=== PATIENT | male | born 1975 | race Caucasian/White ===

== ENCOUNTER → 2017-09-04 15:27 | Outpatient (CLI) | payer OTHER, SELFPAY ==
[2017-09-04 17:42] LABS: Absolute Lymphocyte Count 2.31 X10^3/ul (0.83-4.51); Absolute Neutrophil Count 5.2 X10^3/uL (2.0-7.7); Basophil# 0.03 X10^3/uL; Basophil% 0.3 % (0-1); Eosinophil# 0.25 X10^3/uL; Eosinophils% 2.9 % (0-5); Hematocrit 44.2 % (40-54); Hemoglobin 14.6 g/dl (13.0-16.5); Lymphocyte # 2.31 X10^3/ul (4.0); Lymphocyte % 26.9 % (19-41); Mean Corpuscular Hgb 31.7 pg (27.0-32.0); Mean Corpuscular Volume 96.1 fL (80-94); Mean Platelet Vol. 9.8 fl (6.2-12.0); Monocyte# 0.78 X10^3/uL; Monocyte% 9.1 % (0-10); Neutrophil % 60.6 % (47-70); Platelet Count 237 K/mm3 (150-450); RBC Distribution Width CV 13.3 % (11.6-14.6); White Blood Count 8.6 K/mm3 (4.4-11.0)
[2017-09-04 17:44] LABS: POSITIVE COUNT NO; POSITIVE DIFFERENTIAL NO; POSITIVE MORPHOLOGY NO
[2017-09-04 17:55] LABS: ALB/GLOB Ratio 1.2 RATIO (0.9-2.4); AST(SGOT) 32 U/L (15-37); Alanine Aminotransfer ALT/SGPT 74 U/L (16-61); Albumin, Serum 3.8 g/dL (3.2-5.0); Alkaline Phosphatase 56 U/L (45-117); Anion Gap 9 (5-15); BUN 15 mg/dL (7-18); BUN/Creat Ratio 24.2 RATIO (10-20); Calcium,Total 8.6 mg/dL (8.5-10.1); Chloride 100 mmol/L (98-107); Creatinine, Serum 0.62 mg/dL (0.70-1.30); EST Glomerular Filtration Rate 151 mL/min (>60); Est Glom Filt Rate - Afr Amer 182 mL/min (>60); Globulin 3.2 g/dL (2.2-4.2); Glucose 97 mg/dL (70-110); Potassium 3.7 mmol/L (3.5-5.1); Sodium Level 137 mmol/L (136-145)
[2017-09-04 17:58] LABS: Hemoglobin A1c 5.3 % (4.2-6.3)
[2017-09-08 09:09] LABS: Testosterone, Free 3.09 ng/dL (5.00-21.00)
[2017-09-10 08:01] LABS: Testosterone, % Free 2.94 % (1.50-4.20); Testosterone, Total 105 ng/dL (264-916)
== END ==
PROVIDERS: Family Provider Family Medicine; PCP Family Medicine; Visit Provider Family Medicine
DX: E11.9 Type 2 diabetes mellitus without complications (principal); K76.0 Fatty (change of) liver, not elsewhere classified; E29.1 Testicular hypofunction; Z51.81 Encounter for therapeutic drug level monitoring
CPT/HCPCS: 36415; 80053; 83036; 84402; 84403; 85025

== ENCOUNTER → 2017-09-07 16:10 | Outpatient (CLI) | payer OTHER, SELFPAY ==
[2017-09-07 17:32] LABS: Erythrocyte Sedimentation Rate 3 mm/hr (0-15)
[2017-09-07 17:33] LABS: CRP < 2.90 mg/L (0.0-3.0); Uric Acid 7.6 mg/dL (3.5-7.2)
== END ==
PROVIDERS: Family Provider Family Medicine; PCP Family Medicine; Visit Provider Family Medicine
DX: M25.561 Pain in right knee (principal); M79.675 Pain in left toe(s)
CPT/HCPCS: 36415; 84550; 85652; 86140

== ENCOUNTER → 2018-01-19 08:40 | Outpatient (CLI) | payer OTHER, SELFPAY ==
--- NOTE | 2018-01-19 09:07 | CT_ITS ---
STUDY: CT CERVICAL SPINE WITHOUT CONTRAST REASON FOR EXAM: Male, 42 years old. Pain RADIATION DOSAGE (If Supplied By Facility): CTDIvol = ( 30.82 ) mGy, DLP = ( 761.25 ) mGycm TECHNIQUE: High resolution transaxial imaging was performed without contrast material. Sagittal and coronal images were reconstructed. Individualized dose optimization techniques were used for this CT. COMPARISON: None FINDINGS: There is loss of the normal lordotic curvature of cervical spine with no acute fractures or dislocations. This a normal craniovertebral junction and an intact tectorial membrane. There are degenerative changes at C5-C6 C6-C7 and C7-T1. These aren't demonstrated by narrowing of the disc spaces and the presence of marginal osteophytes. The central canal is clear. .. CT/Spine Cervical without Contras IMPRESSION: No acute fractures. Degenerative changes in the lower cervical spine. Electronically Signed: Jordon Ortiz, at 8:23 EDT Tel , Service support ,
== END ==
PROVIDERS: Family Provider Family Medicine; PCP Family Medicine; Visit Provider Family Medicine
DX: M50.322 Other cervical disc degeneration at C5-C6 level (principal); M51.34 Other intervertebral disc degeneration, thoracic region; G89.29 Other chronic pain
CPT/HCPCS: 72125

== ENCOUNTER → 2019-05-08 14:51 | Outpatient (CLI) | payer OTHER, SELFPAY ==
[2016-12-01 09:22] VITALS: BMI 39.4
--- NOTE | 2019-05-08 14:56 | RAD_ITS ---
STUDY: X-RAY CHEST REASON FOR EXAM: Male, 44 years old. Short of breath TECHNIQUE: Frontal and lateral views of the chest. COMPARISON: 12/01/2016. FINDINGS: Moderate lung volumes. Stable linear scar across the lower right lung. Blunting of the costophrenic angles with no evidence for pleural effusions on the lateral view suggestive of pleural parenchymal scarring. No focal infiltrates. Normal size heart. Normal mediastinum and kenyatta. There is prominence of the pulmonary hilar arteries without peripheral pulmonary vascular congestion, suggesting pulmonary hypertension. Normal visualized aortic arch and descending thoracic aorta. Normal visualized thoracic spine. Normal visualized ribs, clavicles, and shoulders. There is no demonstrated abnormality of the visualized soft tissue structures of the upper abdomen. RAD/Chest PA and Lateral IMPRESSION: No definite acute chest disease. Electronically Signed: Ravindra Mesa MD at 16:22 EDT , Service support ,
== END ==
PROVIDERS: Family Provider Family Medicine; PCP Family Medicine; Referring Provider Family Medicine; Visit Provider Family Medicine
DX: R06.02 Shortness of breath (principal)
CPT/HCPCS: 71046

== ENCOUNTER → 2019-05-09 13:18 | Outpatient (CLI) | payer OTHER, SELFPAY ==
[2019-05-09 14:18] LABS: Absolute Neutrophil Count 7.3 X10^3/uL (2.0-7.7); Basophil# 0.03 X10^3/uL; Basophil% 0.3 % (0-1); Eosinophil# 0.02 X10^3/uL; Eosinophils% 0.2 % (0-5); Hematocrit 47.4 % (40-54); Hemoglobin 15.2 g/dL (13.0-16.5); Lymphocyte % 14.8 % (19-41); Mean Corp Hgb Conc 32.1 g/dL (32-36); Mean Corpuscular Hgb 31.7 pg (27.0-32.0); Mean Corpuscular Volume 98.8 fL (80-94); Mean Platelet Vol. 9.7 fl (6.2-12.0); Monocyte% 7.4 % (0-10); NRBC Flagged by Analyzer 0 % (0-5); Neutrophil # 7.29 X10^3/uL (2.7-7.7); Neutrophil % 76.8 % (47-70); Platelet Count 206 K/mm3 (150-450); RBC Distribution Width CV 14.1 % (11.6-14.6); RBC Distribution Width SD 51.3 fl (35.1-43.9); White Blood Count 9.5 K/mm3 (4.4-11.0)
[2019-05-09 14:34] LABS: ALB/GLOB Ratio 1.1 RATIO (0.9-2.4); AST(SGOT) 142 U/L (15-37); Alanine Aminotransfer ALT/SGPT 578 U/L (16-61); Albumin, Serum 3.5 g/dL (3.2-5.0); Alkaline Phosphatase 89 U/L (45-117); Anion Gap 9 (5-15); BUN 15 mg/dL (7-18); Calcium,Total 8.6 mg/dL (8.5-10.1); Chloride 103 mmol/L (98-107); Creatinine, Serum 0.68 mg/dL (0.70-1.30); EST Glomerular Filtration Rate 134 mL/min (>60); Est Glom Filt Rate - Afr Amer 163 mL/min (>60); Globulin 3.1 g/dL (2.2-4.2); Glucose 106 mg/dL (74-106); Protein, Total 6.6 g/dL (6.4-8.2); Sodium Level 139 mmol/L (136-145)
[2019-05-09 15:16] LABS: D-Dimer Quantitative (DVT/PE) 0.43 FEU/ug/m (0.27-0.49)
== END ==
PROVIDERS: Family Provider Family Medicine; PCP Family Medicine; Visit Provider Family Medicine
DX: I48.0 Paroxysmal atrial fibrillation (principal); R06.00 Dyspnea, unspecified; R53.83 Other fatigue
CPT/HCPCS: 36415; 80053; 83880; 84484; 85025; 85379

== ENCOUNTER → 2019-05-21 14:52 | Outpatient (CLI) | payer OTHER, SELFPAY ==
--- NOTE | 2019-05-21 14:55 | ECHOD_ITS ---
Reason For Study: RECURRENT AFIB Procedure This was a 2D Doppler, Color Flow transthoracic echocardiogram. Definity deferred due to increased PAP. Exam performed in department. Left Ventricle Moderately dilated left ventricle. The estimated ejection fraction is 50 %. Unable to assess diastolic dysfunction due to arrhythmia. There is mild global hypokinesis of the left ventricle. Right Ventricle Moderately dilated right ventricle. Mild to moderate global right ventricular systolic dysfunction. Atria Normal left atrium. The right atrium is severely enlarged. Normal atrial septum. Mitral Valve The mitral valve is structurally normal. No prolapse or stenosis seen. Tricuspid Valve Normal tricuspid valve. Mild (1+) tricuspid valve insufficiency. Right ventricular systolic pressure estimated to be 70 mmHg. Severe pulmonary hypertension. Aortic Valve Normal aortic valve. Trisinus/trileaflet aortic valve. Pulmonic Valve Normal pulmonic valve. Great Vessels Normal aortic root. Normal arch. The inferior vena cava is dilated. No collapse of the inferior vena cava. Pericardium/Pleural No pericardial effusion. MMode/2D Measurements & Calculations LVIDd: 5.4 cm IVSd: 1.2 cm Ao root diam: 3.3 cm LVIDs: 3.8 cm LVPWd: 1.0 cm RVDd: 4.4 cm FS: 29.5 % LAV(MOD-bp): 62.3 ml LVAd ap4: 36.5 cm2 SV(MOD-sp4): 61.8 ml LAV(MOD-bp) Indexed: 22.6 ml/m2 EDV(MOD-sp4): 123.3 ml LAV(MOD-sp2): 69.8 ml EDV(sp4-el): 126.3 ml LAV(MOD-sp4): 54.2 ml LVAs ap4: 23.3 cm2 ESV(MOD-sp4): 61.6 ml ESV(sp4-el): 60.1 ml EF(MOD-sp4): 50.1 % EF(sp4-el): 52.4 % SV(sp4-el): 66.2 ml LA A4 area: 19.6 cm2 LA dimension(2D): 4.6 cm RA A4 area: 27.2 cm2 Doppler Measurements & Calculations MV E max abhinav: 103.6 cm/sec Ao V2 max: 129.9 cm/sec LV V1 max: 108.2 cm/sec Ao max P.8 mmHg LV V1 max P.8 mmHg PA V2 max: 99.3 cm/sec TR max abhinav: 363.8 cm/sec TR max P.0 mmHg Interpretation Summary Moderately dilated left ventricle. The estimated ejection fraction is 50 %. Unable to assess diastolic dysfunction due to arrhythmia. There is mild global hypokinesis of the left ventricle. Moderately dilated right ventricle. Mild to moderate global right ventricular systolic dysfunction. The right atrium is severely enlarged. Mild (1+) tricuspid valve insufficiency. Right ventricular systolic pressure estimated to be 70 mmHg. Severe pulmonary hypertension. The inferior vena cava is dilated Pt appears to be in atrial fibrillation. Compared to echo report dated 12/01/2016, LV function has remained the same, but RVSP was unable to be calculated at that time. Ordering Physician: Sherif Jordan Referring Physician: Sherif Jordan Performed By: Josefina Mast RDCS
== END ==
PROVIDERS: Family Provider Family Medicine; PCP Family Medicine; Referring Provider Family Medicine; Visit Provider Family Medicine
DX: I48.0 Paroxysmal atrial fibrillation (principal)
CPT/HCPCS: 93306

== ENCOUNTER 2019-06-15 09:21 | Emergency (ER) | payer OTHER, SELFPAY ==
[2019-06-15 08:36] VITALS: BMI 39.4
[2019-06-15 09:22] VITALS: BP 126/78; PULSE 70; RESP 16; TEMP 36.4; O2SAT 94; BMI 43.7
--- NOTE | 2019-06-15 09:35 | CT_ITS ---
STUDY: CT ABDOMEN AND PELVIS WITH CONTRAST REASON FOR EXAM: Male, 44 years old. Acute onset of hematuria RADIATION DOSAGE (If Supplied By Facility): CTDIvol = ( 17.07 ) mGy, DLP = ( 1451.82 ) mGycm TECHNIQUE: Transaxial images were obtained from the dome of the diaphragm to the symphysis pubis without oral contrast. IV 100mL Isovue-300 100 was administered. Sagittal and coronal images were reconstructed. Individualized dose optimization techniques were used for this CT. COMPARISON: None. FINDINGS: The visualized lung bases are unremarkable. The visualized portions of the heart are within normal limits. Normal liver. The gallbladder is contracted. Questionable pericholecystic fluid. There is mild splenomegaly. Normal pancreas. Normal bilateral adrenal glands. Normal right kidney. Normal left kidney. Normal visualized stomach. Normal small intestine. There are multiple colonic diverticula consistent with diverticulosis. The appendix is visualized and appears normal. Normal abdominal aorta. Normal inferior vena cava. Normal retroperitoneum. Normal urinary bladder. Normal visualized prostate gland. Normal abdominal wall. Normal osseous structures. CT/Abdomen/Pelvis W IV Cont ONLY IMPRESSION: No acute findings. Unremarkable kidneys without stones or obstruction. No evidence of renal masses. Contracted gallbladder. Questionable pericholecystic fluid. Recommend gallbladder ultrasound to further evaluate. Electronically Signed: Scottie Fuller DO at 11:36 EST Tel , Service support ,
--- NOTE | 2019-06-15 09:40 | ED.VISSUMM ---
- ER Visit Summary Date of Service: 06/15/19 Chief Complaint: Hematuria History of Present Illness: The patient is a 44 M who presents the emergency department with hematuria since this morning. He notes some dysuria and has seen a small clot. He is on Xarelto for A. fib. No trauma. He notes that 2 days ago he had a episode of fever and chills but no other symptoms. No history of kidney stones. He is a former smoker. He denies any abdominal pain. Physical Examination: Afebrile vital signs are stable Gen: Well-nourished well-developed Head: Normocephalic atraumatic Eyes: Perrl EOMI ENT: TMs clear no rhinorrhea moist mucous membranes Neck: Supple no lymphadenopathy no JVD nontender CVS: Regular rate rhythm no murmurs normal S1-S2 Respiratory: No distress clear to auscultation bilaterally chest nontender Abdomen: Soft nontender nondistended normal bowel sounds no masses Back: Nontender Extremity: Nontender no edema Skin: Normal color no rash Neuro: alert orientated ?3 CN II-XII intact normal strength sensation reflexes gait cerebellar Psych: Normal affect normal mood Test Results: Urinalysis with 5-10 red blood cells. No bacteria. No white cells. Normal white count. Creatinine 0.73. CT of the pelvis demonstrates no obvious pathology to identify the source of bleeding. Emergency Department Course and Treatment: Patient received IV fluids. He will be discharged home to follow-up with urology. Patient was advised that if he is unable to void he needs to return for catheter placement. Impression: 1. Hematuria This note was generated with [employer] dictation software. It may contain incorrect words, spelling, and punctuation that were not noted in review of the chart prior to signing ED Disposition - Plan for ED Patient: Disposition: Home or Assisted Living Instructions: Hematuria Referrals: Agus Kelley MD [STAFF PHYSICIAN] - As soon as possible Additional Instructions: If you find that you are unable to empty your bladder you need to return to the emergency department
[2019-06-15] MEDS: 0.9% Normal Saline 1,000 ML 999 ML IV (09:52)
[2019-06-15 09:54] LABS: Absolute Lymphocyte Count 1.35 X10^3/uL (0.83-4.51); Basophil# 0.05 X10^3/uL; Basophil% 0.7 % (0-1); Eosinophil# 0.18 X10^3/uL; Eosinophils% 2.5 % (0-5); Hematocrit 49.9 % (40-54); Hemoglobin 16.1 g/dL (13.0-16.5); Lymphocyte # 1.35 X10^3/ul (4.0); Lymphocyte % 18.6 % (19-41); Mean Corp Hgb Conc 32.3 g/dL (32-36); Mean Corpuscular Hgb 31.6 pg (27.0-32.0); Mean Corpuscular Volume 97.8 fL (80-94); Mean Platelet Vol. 9.4 fl (6.2-12.0); Monocyte# 0.63 X10^3/uL; Monocyte% 8.7 % (0-10); NRBC Flagged by Analyzer 0 % (0-5); Neutrophil # 5.03 X10^3/uL (2.7-7.7); Neutrophil % 69.1 % (47-70); Platelet Count 189 K/mm3 (150-450); RBC Distribution Width CV 13.2 % (11.6-14.6); RBC Distribution Width SD 47.7 fl (35.1-43.9); White Blood Count 7.3 K/mm3 (4.4-11.0)
[2019-06-15 09:58] LABS: Bacteria 0 SEEN /hpf (None Seen); Mucous, Urine 0 SEEN /hpf (<or=2+); Squamous Epithelial Cells - UA 0 SEEN /hpf (0-5); White Blood Cells 0 SEEN /hpf (0-5)
[2019-06-15 09:59] LABS: Color, Urine Yellow (Yellow); Glucose, Dipstick Normal (Normal); Ketone-Dipstick 50 mg/dl (Negative); Leukocyte Esterase-Dipstick 25 /ul (Negative); Nitrite-Dipstick Negative (Negative); Occult Blood-Urine 50 /ul (Negative); Protein-Dipstick 30 mg/dl (Negative); Specific Gravity, Urine 1.015 (1.002-1.030); Urine Bilirubin Dipstick Negative (Negative); Urine Clarity Clear (Clear); Urine Urobilinogen Normal (Normal)
[2019-06-15 10:05] LABS: Anion Gap 6 (5-15); BUN 17 mg/dL (7-18); BUN/Creat Ratio 23.4 RATIO (10-20); Calcium,Total 8.8 mg/dL (8.5-10.1); Chloride 102 mmol/L (98-107); Creatinine, Serum 0.73 mg/dL (0.70-1.30); EST Glomerular Filtration Rate 125 mL/min (>60); Est Glom Filt Rate - Afr Amer 151 mL/min (>60); Estimated Creatinine Clearance 154.34 ml/min; Glucose 123 mg/dL (74-106); Potassium 4.3 mmol/L (3.5-5.1); Sodium Level 139 mmol/L (136-145)
[2019-06-15 10:05] LABS: Red Blood Cells-Urine 5-10 SEEN /hpf (0-5)
--- NOTE | 2019-06-15 12:34 | ED.RN ---
IV DC'ED, CATHETER INTACT,SMALL GAUZE DRESSING PLACED. DISCHARGE INSTRUCTIONS GIVEN TO AND REVIEWED WITH PATIENT, PATIENT DENIES QUESTIONS OR CONCERNS AND VOICES UNDERSTANDING OF DISCHARGE INSTRUCTIONS. PT AMBULATES OUT OF ROOM WITHOUT DIFFICULTY.
== END 2019-06-15 12:35 | disposition home or self-care (01) ==
PROVIDERS: Emergency Provider Emergency Medicine; Family Provider Family Medicine; PCP Family Medicine
DX: R31.9 Hematuria, unspecified (principal); E11.9 Type 2 diabetes mellitus without complications; K21.9 Gastro-esophageal reflux disease without esophagitis; I48.91 Unspecified atrial fibrillation; G47.33 Obstructive sleep apnea (adult) (pediatric); Z79.01 Long term (current) use of anticoagulants; Z87.891 Personal history of nicotine dependence
CPT/HCPCS: 74177; 80048; 81001; 85025; 99283; J7030; Q9967; A4216

== ENCOUNTER → 2019-06-15 14:09 | Outpatient (CLI) | payer OTHER, SELFPAY ==
[2019-06-15 09:22] VITALS: BMI 43.7
[2019-06-15 14:14] LABS: Bacteria 0 SEEN /hpf (None Seen); Mucous, Urine 0 SEEN /hpf (<or=2+); White Blood Cells 0 SEEN /hpf (0-5)
[2019-06-15 14:41] LABS: Color, Urine Yellow (Yellow); Glucose, Dipstick Normal (Normal); Ketone-Dipstick 50 mg/dl (Negative); Leukocyte Esterase-Dipstick 25 /ul (Negative); Nitrite-Dipstick Negative (Negative); Occult Blood-Urine 25 /ul (Negative); Protein-Dipstick 30 mg/dl (Negative); Specific Gravity, Urine 1.015 (1.002-1.030); Urine Bilirubin Dipstick Negative (Negative); Urine Clarity Clear (Clear); Urine Urobilinogen Normal (Normal)
[2019-06-15 14:47] LABS: Red Blood Cells-Urine 5-10 SEEN /hpf (0-5); Squamous Epithelial Cells - UA 0-5 SEEN /hpf (0-5)
== END ==
PROVIDERS: Family Provider Family Medicine; PCP Family Medicine; Referring Provider Physician Assistant Medical; Visit Provider Physician Assistant Medical
DX: R30.0 Dysuria (principal)
CPT/HCPCS: 81001; 87086

== ENCOUNTER → 2019-06-16 11:28 | Outpatient (CLI) | payer OTHER, SELFPAY ==
[2019-06-15 09:22] VITALS: BMI 43.7
[2019-06-16 13:25] LABS: PSA,Total- Diagnostic 1.19 ng/mL (0.0-4.0)
== END ==
PROVIDERS: Family Provider Family Medicine; PCP Family Medicine
DX: R31.0 Gross hematuria (principal)
CPT/HCPCS: 36415; 84153

== ENCOUNTER → 2019-07-04 10:11 | Outpatient (CLI) | payer OTHER, SELFPAY ==
[2019-06-16 15:48] VITALS: BMI 43.6
--- NOTE | 2019-07-04 10:13 | STE_ITS ---
Reason For Study: afib/flutter Stress Results Protocol: Dobutamine Stress Echo Maximum Predicted HR: 176 bpm Target HR: 150 bpm % Maximum Predicted HR: 82 % DurationHeart Rate Stage (mm:ss) (bpm) BP Dose baseline 90 128/94 stage 1 3:58 97 158/87 10.00 stage 2 3:00 111 163/98936.00 stage 3 4:41 144 172/44737.00 recovery 104 149/84 Stress Duration: 11:39 mm:ss Maximum Stress HR: 144 bpm Baseline Echocardiogram Findings The estimated ejection fraction is 45 %. Stress Echo Wall motion Data Resting WM Intermediate WM Stress WM Resting Wall Motion Wall Motion Stress No regional wall motion No regional wall motion abnormalities noted. abnormalities noted. EKG Data Atrial fibrillation. The patient was titrated from 10 mcg to a maximun of 30 mcg of dobutamine during the stress. The maximum heart rate attained was 164 beats per minute. This was 93% of maximum predicted heart rate. During dobutamine infusion, there were no ST or T wave changes noted to suggest ischemia. No clinical angina was noted. Interpretation Summary The estimated ejection fraction is 45 %. Normal, adequate, dobutamine echocardiogram. Negative for ischemia by EKG and echocardiographic criteria. No anginal symptoms noted. Baseline atrial fibrillation but no other arrhythmias noted during infusion. Hypertensive blood pressure response to dobutamine. Baseline global LV dysfunction of a moderate degree with an EF around 45% but all benson contract normally at peak infusion. Final LVEF of 65%. Test terminated due to the attainment of target heart rate. No complications. Ordering Physician: Ranulfo Gaston Referring Physician: Ranulfo Gaston Performed By: Shelby Barry RDCS
== END ==
PROVIDERS: Family Provider Family Medicine; PCP Family Medicine; Referring Provider Internal Medicine Cardiovascular Disease; Visit Provider Internal Medicine Cardiovascular Disease
DX: I48.0 Paroxysmal atrial fibrillation (principal); R06.02 Shortness of breath; G47.33 Obstructive sleep apnea (adult) (pediatric)
CPT/HCPCS: 93017; 93350; J7040; A4216

== ENCOUNTER → 2019-07-14 15:44 | Outpatient (CLI) | payer OTHER, SELFPAY ==
[2019-06-16 15:48] VITALS: BMI 43.6
[2019-07-14 18:23] LABS: Anion Gap 9 (5-15); BUN 13 mg/dL (7-18); BUN/Creat Ratio 16.3 RATIO (10-20); Calcium,Total 9.5 mg/dL (8.5-10.1); Chloride 102 mmol/L (98-107); EST Glomerular Filtration Rate 112 mL/min (>60); Est Glom Filt Rate - Afr Amer 135 mL/min (>60); Glucose 76 mg/dL (74-106); Potassium 4.2 mmol/L (3.5-5.1); Sodium Level 138 mmol/L (136-145)
== END ==
PROVIDERS: Family Provider Family Medicine; PCP Family Medicine; Referring Provider Internal Medicine Cardiovascular Disease; Visit Provider Internal Medicine Cardiovascular Disease
DX: I48.0 Paroxysmal atrial fibrillation (principal)
CPT/HCPCS: 36415; 80048

== ENCOUNTER 2019-07-28 10:25 | Day surgery (SDC) | payer OTHER, SELFPAY ==
[2019-06-16 15:48] VITALS: BMI 43.6
[2019-07-25 07:44] VITALS: BMI 43.6
--- NOTE | 2019-07-28 12:17 | PRO.PCM_ITS ---
Procedure Report Date of Procedure: 07/28/19 CONSCIOUS SEDATION REPORT DATE OF SERVICE: July 28, 2019 BRIEF HISTORY OF PRESENT ILLNESS: The patient is a morbidly obese 44-year-old male who presented to [facility] for an elective outpatient cardioversion due to underlying atrial fibrillation. The patient denies ever having previously undergone a prior cardioversion. He denies any previous anesthetic complications. Surface echocardiogram last completed revealed an ejection fraction of approximately 50%. The patient is currently anticoagulated on Xarelto. He does report a known history of asthma along with obstructive sleep apnea. However, he does not currently utilize any form of nocturnal Pap therapy. PHYSICAL EXAMINATION: VITAL SIGNS: Reviewed and were acceptable. GENERAL: The patient is a morbidly obese male, in no apparent distress, speaking in full sentences. HEENT: Normocephalic, atraumatic. Mucous membranes are moist and pink. Good mouth opening noted. Trachea is midline. MPIII CHEST: S1, S2 irregularly irregular. No murmurs, rubs or gallops were noted. LUNGS: Clear to auscultation bilaterally without appreciable wheezes, rales or rhonchi. ABDOMEN: Soft, nontender, nondistended. Positive bowel sounds. EXTREMITIES: There is no clubbing, cyanosis or edema. ASA Class: II DESCRIPTION OF PROCEDURE: After confirmation of informed consent, the patient's anesthesia plan was reviewed in detail. Propofol was chosen. Risks and benefits were reviewed and the patient agreed to proceed. At 1156, the patient was given his first bolus of propofol. In total, the patient required 120 mg of propofol to achieve an appropriate level of sedation, after which time, the patient was given a 200 joule synchronized cardioversion by Dr. Gaston at the bedside. This was successful in achieving normal sinus rhythm. The patient was monitored until 1209, at which time he reached his baseline mental status and function. The patient tolerated the procedure well. COMPLICATIONS: None ESTIMATED BLOOD LOSS: None RECOMMENDATIONS: Okay to recover in usual fashion. Code Visit 9xxxx: Other Procedure See Report - [id number]
--- NOTE | 2019-07-28 12:25 | CARDIOVERS_ITS ---
Cardioversion Cardioversion: DC cardioversion summary: The patient was brought to the [facility] holding area in the fasting state, the risk/benefits of the procedure were thoroughly explained to the patient and informed consent was obtained. Patient is never had a DC cardioversion in the past. The pacer pads were placed in the AP position, and with the assistance of Dr. Carlos Manuel Wheatley the patient was given a total of 120 mg of IV propofol, and 20-40 mg increments. Once adequate sedation was obtained, the patient received a single 200 J biphasic synchronized shock which converted the patient from atrial fibrillation to normal sinus rhythm. This rhythm remained durable, and the patient spontaneously awoke, move all 4 extremities and tolerated the procedure well. Conclusions: Successful Xarelto assisted DC cardioversion with a single biphasic 200 J synchronized shock. The patient continue on anticoagulation going forward until his echocardiogram is been repeated in 3 to 4 months time. If the patient continues to have severe pulmonary pretension as a result of his obstructive sleep apnea and previous pulmonary embolism, he will require lifelong anticoagulation therapy. The patient tolerated procedure well. No complications, many thanks to Dr. Carlos Manuel Wheatley for his assistance.
== END 2019-07-28 13:20 | disposition home or self-care (01) ==
LOC: CLSP 10:26
PROVIDERS: Family Provider Family Medicine; PCP Family Medicine; Referring Provider Internal Medicine Cardiovascular Disease; Visit Provider Internal Medicine Cardiovascular Disease
DX: I48.0 Paroxysmal atrial fibrillation (principal); G47.33 Obstructive sleep apnea (adult) (pediatric); I27.20 Pulmonary hypertension, unspecified; J45.909 Unspecified asthma, uncomplicated; K21.9 Gastro-esophageal reflux disease without esophagitis; E66.01 Morbid (severe) obesity due to excess calories; Z68.41 Body mass index [BMI] 40.0-44.9, adult; Z79.01 Long term (current) use of anticoagulants; Z87.891 Personal history of nicotine dependence
CPT/HCPCS: 92960; 93005; J7040

== ENCOUNTER → 2019-10-06 16:12 | Outpatient (CLI) | payer OTHER, SELFPAY ==
[2019-08-04 15:49] VITALS: BMI 43.6
--- NOTE | 2019-10-06 16:36 | RAD_ITS ---
HISTORY: right foot pain, etiology unclear ADDITIONAL HISTORY: None provided. TECHNIQUE: Right foot 3 views Number of images including paperwork: 3 COMPARISON: None FINDINGS: BONES: No acute fracture. Calcaneal enthesophyte. JOINTS: No subluxation. Moderate degenerative changes of the first MTP joint. Mild hammertoe deformities. SOFT TISSUES: No distinct foreign body. RAD/Foot min 3 Views IMPRESSION: Degenerative changes without acute osseous abnormality. at 0006 Reported and signed by: Racquel Sadler MD Electronically Signed: Racquel Sadler MD at 0:06 EST Tel , Service support ,
[2019-10-06 17:23] LABS: Absolute Lymphocyte Count 2.37 X10^3/uL (0.83-4.51); Absolute Neutrophil Count 4.9 X10^3/uL (2.0-7.7); Basophil# 0.06 X10^3/uL; Basophil% 0.7 % (0-1); Eosinophil# 0.28 X10^3/uL; Eosinophils% 3.4 % (0-5); Hematocrit 49.4 % (40-54); Lymphocyte # 2.37 X10^3/ul (4.0); Lymphocyte % 28.6 % (19-41); Mean Corp Hgb Conc 32.4 g/dL (32-36); Mean Corpuscular Hgb 30.8 pg (27.0-32.0); Mean Platelet Vol. 9.4 fl (6.2-12.0); Monocyte# 0.64 X10^3/uL; Monocyte% 7.7 % (0-10); NRBC Flagged by Analyzer 0 % (0-5); Neutrophil # 4.89 X10^3/uL (2.7-7.7); Neutrophil % 59.1 % (47-70); Platelet Count 215 K/mm3 (150-450); RBC Distribution Width CV 13.8 % (11.6-14.6); RBC Distribution Width SD 47.9 fl (35.1-43.9); White Blood Count 8.3 K/mm3 (4.4-11.0)
[2019-10-06 17:31] LABS: Anion Gap 10 (5-15); BUN 34 mg/dL (7-18); BUN/Creat Ratio 36.4 RATIO (10-20); CRP 3.46 mg/L (0.0-3.0); Calcium,Total 9.1 mg/dL (8.5-10.1); Chloride 102 mmol/L (98-107); Creatinine, Serum 0.94 mg/dL (0.70-1.30); EST Glomerular Filtration Rate 93 mL/min (>60); Est Glom Filt Rate - Afr Amer 113 mL/min (>60); Glucose 117 mg/dL (74-106); Potassium 4.1 mmol/L (3.5-5.1); Sodium Level 138 mmol/L (136-145); Uric Acid 10.5 mg/dL (3.5-7.2)
[2019-10-06 17:40] LABS: Hemoglobin A1c 6.3 % (4.2-6.3)
[2019-10-06 17:46] LABS: Erythrocyte Sedimentation Rate 8 mm/hr (0-15)
== END ==
PROVIDERS: PCP Family Medicine; Referring Provider Family Medicine; Visit Provider Family Medicine
DX: M79.671 Pain in right foot (principal); R73.9 Hyperglycemia, unspecified; K76.0 Fatty (change of) liver, not elsewhere classified
CPT/HCPCS: 36415; 73630; 80048; 83036; 84550; 85025; 85652; 86140

== ENCOUNTER → 2020-11-26 11:50 | Outpatient (CLI) | payer OTHER, SELFPAY ==
[2020-11-26 10:30] VITALS: BMI 43.7
--- NOTE | 2020-11-26 11:52 | EKG12_ITS ---
Test Reason : SOB Blood Pressure : / mmHG Vent. Rate : 099 BPM Atrial Rate : 208 BPM P-R Int : 000 ms QRS Dur : 096 ms QT Int : 306 ms P-R-T Axes : 000 045 -24 degrees QTc Int : 392 ms Atrial fibrillation Nonspecific T wave abnormality Abnormal ECG Confirmed by TARAH GARDINER, GWEN ([id number]), video editor KIARRA OSBORN ([id number]) on 11/29/2020 9:57:21 AM Referred By: Carlos Manuel Wheatley Confirmed By:AYDIN RASCON MD
== END ==
PROVIDERS: PCP Family Medicine; Referring Provider Internal Medicine Critical Care Medicine; Visit Provider Internal Medicine Critical Care Medicine
DX: I48.0 Paroxysmal atrial fibrillation (principal)
CPT/HCPCS: 93005

== ENCOUNTER 2020-12-13 08:45 | Emergency (ER) | payer OTHER, SELFPAY ==
[2020-11-26 10:30] VITALS: BMI 43.7
[2020-12-13] VITALS (7 sets, daily range): BP systolic 93–180; BP diastolic 71–105; PULSE 87–123; RESP 16–29; TEMP 36.3–36.8; O2SAT 90–96; BMI 43.3
--- NOTE | 2020-12-13 09:04 | EKG12_ITS ---
Test Reason : SOB Blood Pressure : / mmHG Vent. Rate : 107 BPM Atrial Rate : 068 BPM P-R Int : 000 ms QRS Dur : 090 ms QT Int : 408 ms P-R-T Axes : 000 022 -04 degrees QTc Int : 544 ms Somatic/Motion Artifact Atrial fibrillation with rapid ventricular response Nonspecific T wave abnormality Prolonged QT Abnormal ECG Confirmed by ASHWIN GARDINER, YO ([id number]), restaurant expeditor KIARRA OSBORN ([id number]) on 12/15/2020 8:22:08 AM Referred By: KEVIN Confirmed By:YO CHRISTOPHER MD
--- NOTE | 2020-12-13 09:30 | RAD_ITS ---
STUDY: X-RAY CHEST REASON FOR EXAM: Male, 45 years old. Dyspnea and dyspnea with exertion past month TECHNIQUE: PA and lateral views of the chest. COMPARISON: Comparison is made with prior examination dated 05/08/2019. FINDINGS: EKG electrodes are seen. Mild degree of vascular congestion. Increased markings at the lung bases suggestive of mild CHF. Blunting of both costophrenic angles. Normal size heart. Normal mediastinum and kenyatta. Normal visualized pulmonary arteries. Normal visualized aortic arch and descending thoracic aorta. Normal visualized thoracic spine. Normal visualized ribs, clavicles, and shoulders. There is no demonstrated abnormality of the visualized soft tissue structures of the upper abdomen. RAD/Chest PA and Lateral IMPRESSION: Findings suggestive of a mild degree of CHF with blunting of both costophrenic angles. Electronically Signed: Kenny Espinal MD at 9:47 EDT , Service support ,
[2020-12-13 09:36] LABS: Absolute Lymphocyte Count 0.52 X10^3/uL (0.83-4.51); Absolute Neutrophil Count 5.5 X10^3/uL (2.0-7.7); Basophil# 0.02 X10^3/uL; Basophil% 0.3 % (0-1); Hematocrit 51.3 % (40-54); Hemoglobin 16.4 g/dL (13.0-16.5); Lymphocyte # 0.52 X10^3/ul (0.83-4.51); Lymphocyte % 8.2 % (19-41); Mean Corpuscular Hgb 30.8 pg (27.0-32.0); Mean Corpuscular Volume 96.2 fL (80-94); Mean Platelet Vol. 10.7 fl (6.2-12.0); Monocyte# 0.27 X10^3/uL; Monocyte% 4.2 % (0-10); NRBC Flagged by Analyzer 0 % (0-5); Neutrophil # 5.51 X10^3/uL (2.7-7.7); Neutrophil % 86.7 % (47-70); POSITIVE DIFFERENTIAL YES; Platelet Count 204 K/mm3 (150-450); RBC Distribution Width CV 14.6 % (11.6-14.6); RBC Distribution Width SD 52.1 fl (35.1-43.9); Red Blood Count 5.33 M/mm3 (4.6-6.2); White Blood Count 6.4 K/mm3 (4.4-11.0)
[2020-12-13 09:37] LABS: Differential Indicated SCAN CRITERIA MET
[2020-12-13 09:47] LABS: Anion Gap 4 (5-15); BUN 17 mg/dL (7-18); BUN/Creat Ratio 19.9 RATIO (10-20); Calcium,Total 9.1 mg/dL (8.5-10.1); Chloride 100 mmol/L (98-107); Creatinine, Serum 0.85 mg/dL (0.70-1.30); EST Glomerular Filtration Rate 103 mL/min (>60); Est Glom Filt Rate - Afr Amer 124 mL/min (>60); Estimated Creatinine Clearance 131.17 ml/min; Glucose 235 mg/dL (74-106); Potassium 5.2 mmol/L (3.5-5.1); Sodium Level 136 mmol/L (136-145)
[2020-12-13 10:32] LABS: BNP,B-Type NATRIURETIC PEPTIDE 50.9 pg/mL (0-100)
[2020-12-13] MEDS: dilTIAZem 25 MG/5 ML Vial 20 MG IV BOLUS (12:21)
--- NOTE | 2020-12-13 12:30 | EDS_ITS ---
HPI History of Present Illness Chief Complaint: Shortness of Breath Informant: patient Onset/Context/Timing Onset: Weeks Context: Gradual Onset Timing: Continuous and Waxes and wanes Quality: Dyspnea, diaphoresis, dyspnea on exertion Location: Not applicable Current Severity: Mild Maximum Severity: Severe Worsened by: Activity Relieved by: Improves with rest Associated Symptoms Associated Symptoms: Diaphoresis Narrative Narrative: Patient is a 45-year-old male with history of paroxysmal atrial fibrillation, remote history of pulmonary embolus, obstructive sleep apnea, asthma, type 2 diabetes who was seen last week by Dr. Carlos Manuel Wheatley and has outpatient studies ordered for echo and oxygen 6-minute walk test. Patient states he has been using his halo more frequently. He has been placed on prednisone more frequently. He does report increased swelling. He has 1-2 pillow orthopnea. He denies exposure to anyone's been ill. He does have rhinorrhea. He reports allergies. He denies headache. Denies ocular, visual auditory symptoms. No trouble speech or swallowing. He denies exposure to anyone with Covid or anyone that has been ill. He denies loss of taste or smell. Denies chest discomfort with activity or exertion. He denies GI symptoms. Has black to maroon stool. After his office visit with Dr. Wheatley he resumed taking his anticoagulant since he was in atrial fibrillation. Patient states he is compliant with his Cardizem to treat his ventricular rate. He denies any discoloration or asymmetry of his lower extremities. He states he would not of come if his did not insist. Prior similar symptoms: Yes Recent Illness/Hospitalization: Yes [facility] Medical History A-fib Asthma Bulging of cervical intervertebral disc Cervical spondylosis Chronic neck pain Claustrophobia Fatigue Fatty liver GERD (gastroesophageal reflux disease) Morbid obesity Obstructive sleep apnea Paroxysmal atrial fibrillation Primary hypogonadism in male Pulmonary embolism Shortness of breath Sleep apnea Type 2 diabetes mellitus without complications Home Medications omeprazole 20 mg PO DAILY 09/28/14 [History Last Taken Unknown] bupropion HCl 150 mg tablet,12 hr sustained-release 150 mg PO DAILY 06/05/19 [History Last Taken Unknown] citalopram 20 mg tablet 20 mg PO DAILY 06/05/19 [History Last Taken Unknown] albuterol sulfate 1 - 2 puff INHALATION Q4H PRN PRN 06/15/19 [History Last Taken Unknown] diltiazem HCl 180 mg capsule,extended release 24 hr 180 mg PO DAILY cap 06/15/19 [History Last Taken Unknown] rivaroxaban 20 mg tablet 20 mg PO DAILY tab 06/15/19 [History Last Taken Unknown] testosterone cypionate 200 mg/mL intramuscular oil IM #1 06/15/19 [History Last Taken Unknown] albuterol sulfate 2.5 mg INHALATION Q4H PRN ml 06/16/19 [History Last Taken Unknown] exenatide microspheres 2 mg subcutaneous extended release suspension mg SC .twice weekly 06/16/19 [History Last Taken Unknown] furosemide 40 mg tablet 40 mg PO DAILY #90 tab 07/22/20 [Rx Last Taken Unknown] fluticasone 250 mcg-salmeterol 50 mcg/dose blistr powdr for inhalation 1 inh INHALATION BID 11/26/20 [History Last Taken Unknown] Allergy/AdvReac Type Severity Reaction Status Date / Time morphine Allergy Severe Anaphylaxis Verified 12/13/20 08:49 Family History Other Hypertension Surgical History History of herniorrhaphy Social History Smoking Status: Former smoker quit date: 08/06/00 pack-years: 11 Smokeless tobacco user: chewing tobacco alcohol intake: current alcohol intake frequency: 0-2 drinks per day ROS ROS ED Constitutional Constitutional ED: Reports sweats; Denies chills, fever(s), subjective or weight loss Eyes Eyes: Denies blurry vision, change in vision or diplopia ENT ENT ED: Reports rhinorrhea; Denies ear pain or sore throat Cardiovascular Cardiovascular: Reports orthopnea and palpitations; Denies chest pain, paroxysmal nocturnal dyspnea or racing heartbeat Respiratory/Chest Respiratory/Chest: Reports cough, dyspnea, dyspnea on exertion, orthopnea and sputum; Denies paroxysmal nocturnal dyspnea Gastrointestinal Gastrointestinal: Denies abdominal pain, constipation, diarrhea, melena, nausea, vomiting or other Genitourinary Genitourinary ED: Denies dysuria, hematuria or urinary frequency Musculoskeletal Musculoskeletal: Denies arthralgias, back pain, myalgias or neck pain Integumentary Denies rash Neurologic Neurologic: Denies headache(s), paresthesias or weakness Endocrine Endocrinology: Denies polydipsia, polyphagia or polyuria Allergic/Immunologic Allergic/Immunologic ED: Denies mouth swelling, tongue swelling or urticaria EXAM Physical Exam Const Vital Signs: 12/13/20 08:45 12/13/20 09:12 12/13/20 10:11 Temperature 97.3 F L 97.3 F L Temperature Source Temporal Axillary Pulse Rate 94 120 H 123 H Respiratory Rate 18 24 H 29 H Respiratory Effort Short of Breath Labored Accessory Muscle Use Respiratory Depth Normal Respiratory Pattern Tachypnea Blood Pressure 159/105 H 180/94 H Blood Pressure Mean 123 122 Pulse Ox 90 91 96 Oxygen Delivery Method Room Air Room Air Nasal Cannula Oxygen Flow Rate (L/min) 2 12/13/20 11:06 12/13/20 12:22 12/13/20 12:48 Temperature 97.3 F L 98.2 F Temperature Source Temporal Oral Pulse Rate 117 H 87 98 Respiratory Rate 20 H 16 25 H Respiratory Effort Respiratory Depth Respiratory Pattern Blood Pressure 158/99 H 93/71 155/79 H Blood Pressure Mean 118 78 104 Pulse Ox 95 96 96 Oxygen Delivery Method Nasal Cannula Nasal Cannula Nasal Cannula Oxygen Flow Rate (L/min) 2 2 2 Positive well nourished, well developed and obese General Appearance ED: well developed and diaphoretic; Negative for cyanotic Nutritional Appearance: obese Eyes PERRL and EOMs intact bilaterally General Eye ED: Negative for pale conjunctiva or scleral icterus Neck no lymphadenopathy, supple and no JVD General: Negative for tenderness Chest Wall inspection of chest normal and palpation of chest normal Resp normal respiratory effort and clear to auscultation bilaterally Auscultation: diminished lung sounds bilateral Cardio no murmurs Rate: tachycardic Rhythm: abnormal rhythm GI normal to inspection, nondistended, normoactive bowel sounds Back/Spine no CVA tenderness Extremity normal to inspection General Extremety ED: Yes edema; Negative for tenderness General Extremity: edema Neuro oriented x3, CN's II-XII intact bilaterally and no sensory deficits noted Sensorium / Orientation: alert Motor Exam: strength 5/5 throughout Psych mental status grossly normal Skin no rashes or lesions noted MDM MDM MDM Narrative Medical decision making narrative: With complaint of dyspnea and dyspnea on exertion with diaphoresis EKG was obtained to rule out acute ischemia. Patient's EKG reveals atrial fibrillation. Chest x-ray was obtained to evaluate for pneumonia, congestive heart failure versus other pulmonary causes to explain his dyspnea. Work was obtained to assess for anemia. Troponin and BNP were added after reviewing chest x-ray which reveals small bilateral pleural effusions and findings consistent with mild congestive heart failure. Presume this is due to A. fib with RVR. Patient was treated with IV Cardizem for his A. fib with RVR. Patient's heart rate is in the 80s after IV Cardizem. He has not been compliant with his furosemide. He was instructed take 20 mg instead of 40 every morning. He was instructed to contact his marble finisher, Dr. Montano. Monitor reveals atrial fibrillation which is persistent and chronic. His rate is now controlled. There was no ectopy noted. Lab Data Attestation: I reviewed the patient's lab results. Labs: Laboratory Results - last 24 hr 12/13/20 12/13/20 12/13/20 09:25 09:25 09:25 WBC 6.4 RBC 5.33 Hgb 16.4 Hct 51.3 MCV 96.2 H MCH 30.8 MCHC 32.0 RDW Std Deviation 52.1 H RDW Coeff of Salazar 14.6 Plt Count 204 MPV 10.7 Immature Gran % (Auto) 0.600 Neut % (Auto) 86.7 H Lymph % (Auto) 8.2 L [place] % (Auto) 4.2 Eos % (Auto) 0.0 Baso % (Auto) 0.3 Absolute Neuts (auto) 5.5 Absolute Lymphs (auto) 0.52 L Nucleated RBC % 0 Sodium 136 Cancelled Potassium 5.2 H Cancelled Chloride 100 Cancelled Carbon Dioxide 32.0 Cancelled Anion Gap 4 L Cancelled BUN 17 Cancelled Creatinine 0.85 Cancelled Estim Creat Clear Calc 131.17 Est GFR (MDRD) Af Amer 124 Cancelled Est GFR (MDRD) Non-Af 103 Cancelled BUN/Creatinine Ratio 19.9 Cancelled Glucose 235 H Cancelled Calcium 9.1 Cancelled Troponin I < 0.015 B-Natriuretic Peptide 12/13/20 09:25 WBC RBC Hgb Hct MCV MCH MCHC RDW Std Deviation RDW Coeff of Salazar Plt Count MPV Immature Gran % (Auto) Neut % (Auto) Lymph % (Auto) [place] % (Auto) Eos % (Auto) Baso % (Auto) Absolute Neuts (auto) Absolute Lymphs (auto) Nucleated RBC % Sodium Potassium Chloride Carbon Dioxide Anion Gap BUN Creatinine Estim Creat Clear Calc Est GFR (MDRD) Af Amer Est GFR (MDRD) Non-Af BUN/Creatinine Ratio Glucose Calcium Troponin I B-Natriuretic Peptide 50.9 Radiography Chest X-Ray - ED: 2 View, Read by ED Physician, Read by Radiologist, Mediastinum, Bony Structures, Right Effusion and Left Effusion Diagnostic Testing: Radiology Impression Chest X-Ray 12/13/20 09:30 IMPRESSION: Findings suggestive of a mild degree of CHF with blunting of both costophrenic angles. Electronically Signed: Kenny Espinal MD at 9:47 EDT , Service support , EKG Initial EKG: Interpretation: Atrial Fibrillation Comments: Ventricular rate is 107. QRS duration is 90 ms. QT duration is 408 ms. There is significant artifact due to labored breathing and difficult for any further interpretation. Discharge Plan Triage Chief Complaint: Shortness of Breath ED Provider: Drew Ford Dx/Rx/DC Orders Clinical Impression: Atrial fibrillation with rapid ventricular response, Dyspnea on minimal exertion, Pleural effusion Instructions: ED AFIB, ED Heart Failure, Congestive (CHF), ED Dyspnea Prescriptions: No Action bupropion HCl 150 mg tablet sustained-release 12 hr 150 mg PO DAILY RF: 0 citalopram 20 mg tablet 20 mg PO DAILY RF: 0 exenatide ER 2 mg subcutaneous extended release suspension 2 mg suspension,extended rel recon SC .twice weekly RF: 0 albuterol sulfate 2.5 mg /3 mL (0.083 %) solution for nebulization 2.5 mg INHALATION Q4H PRN (Reason: Shortness Of Breath) RF: 0 rivaroxaban 20 mg tablet 20 mg PO DAILY RF: 0 Hold Instructions: 07/22/2020 diltiazem HCl 180 mg capsule,extended release 24hr 180 mg PO DAILY RF: 0 testosterone cypionate 200 mg/mL oil IM Qty: 1 RF: 0 furosemide 40 mg tablet 40 mg PO DAILY Qty: 90 RF: 3 fluticasone propion-salmeterol [Advair Diskus] 250-50 mcg/dose blister with device 1 inh INHALATION BID RF: 0 omeprazole 20 MG capsule 20 mg PO DAILY RF: 0 albuterol sulfate 1 INHALER inhaler 1 - 2 puff inhalation Q4H PRN PRN (Reason: Sob &/Or Wheezing) RF: 0 Primary Care Provider: Sherif Jordan Referrals: Flavio Montano MD [STAFF PHYSICIAN] - 1 Week (Follow-up to ER visit for A. fib RVR and pleural effusion with mild heart failure. Patient has out patient test ordered by Dr. Carlos Manuel Wheatley) Sherif Jordan DO [Primary Care Provider] - Disposition Disposition: Home, self care
== END 2020-12-13 13:14 | disposition home or self-care (01) ==
PROVIDERS: Emergency Provider Emergency Medicine; PCP Family Medicine
DX: I48.20 Chronic atrial fibrillation, unspecified (principal); R06.09 Other forms of dyspnea; J90 Pleural effusion, not elsewhere classified; E66.01 Morbid (severe) obesity due to excess calories; J45.909 Unspecified asthma, uncomplicated; K21.9 Gastro-esophageal reflux disease without esophagitis; Z79.51 Long term (current) use of inhaled steroids; Z87.891 Personal history of nicotine dependence; Z79.899 Other long term (current) drug therapy
CPT/HCPCS: 71046; 80048; 83880; 84484; 85025; 93005; 96374; 99283; A4216

== ENCOUNTER → 2020-12-16 13:34 | Outpatient (CLI) | payer OTHER, SELFPAY ==
[2020-11-26 10:30] VITALS: BMI 43.7
[2020-12-15 10:55] VITALS: BMI 45.0
[2020-12-16 13:45] VITALS: PULSE 103; PULSE 69; PULSE 94; PULSE 97; O2SAT 87; O2SAT 88; O2SAT 89; O2SAT 90; O2SAT 93
--- NOTE | 2020-12-16 13:53 | ECHOCS_ITS ---
Version 2 Reason For Study: PHTN Procedure This was a 2D Doppler, Color Flow transthoracic echocardiogram. The study was technically difficult. Due to body habitus & arrhythmia. Contrast injection was performed. Exam performed in department. Left Ventricle Normal LV size. Left ventricular systolic function is normal. The estimated ejection fraction is 55 %. No regional wall motion abnormalities noted. Right Ventricle Normal RV size. Normal systolic function. Atria Normal left atrium. Mitral Valve Mitral valve not well visualized. Tricuspid Valve The tricuspid valve is not well visualized. Unable to estimate RV systolic pressure due to insufficient tricuspid regurgitant envelope. Aortic Valve The aortic valve is not well visualized. Pulmonic Valve The pulmonic valve is not well visualized. Great Vessels Normal aortic root. The pulmonary is not well visualized. Pericardium/Pleural No pericardial effusion. Medication 22 gauge I.V. with prn adaptor inserted into right arm. Performed a rapid injection of agitated mix of 9 cc saline and 1cc air to assess for atrial septal defect. Diluted definity 5.0ml given slow IV push to enhance endocardial definition. MMode/2D Measurements & Calculations LVIDd: 4.9 cm IVSd: 1.2 cm Ao root diam: 3.9 cm LVIDs: 3.7 cm LVPWd: 1.2 cm LA dimension: 5.2 cm FS: 25.1 % LAV(MOD-sp4): 96.5 ml LA A4 area: 28.4 cm2 RA A4 area: 29.8 cm2 Doppler Measurements & Calculations MV E max abhinav: 101.3 cm/sec Ao V2 max: 146.6 cm/sec LV V1 max: 85.2 cm/sec Ao max P.6 mmHg LV V1 max P.9 mmHg PA V2 max: 118.2 cm/sec ECHO/Echo Complete W/ Contrast Interpretation Summary Normal LV size. Left ventricular systolic function is normal. The estimated ejection fraction is 55 %. Contrast injection was performed. The study was technically difficult. Ordering Physician: Thaddeus Johnson Referring Physician: Sherif Jordan Performed By: Maine Henley, DENTON, RVT
--- NOTE | 2020-12-16 14:00 | CPS ---
Patient stated prior to test that he wears 3L of oxygen at home. He has had a sleep study in the past and qualified for a CPAP machine however could not get acclimated to wearing the mask and does not use it. Patient stated that he has been using his 3L of oxygen in place of this. On room air patients sat's were 87%, therefore test was initiated on 3L. At the 2 minute sapna patients sat's dropped to 88% therefore oxygen was increased to 4L. Sat's were maintained above 90% for the remainder of the test on 4L.
--- NOTE | 2020-12-17 14:06 | PCM.PSN.6M ---
PSN 6 Minute Walk Test 6 Minute Walk Test 6 Minute Walk Test: 6 Minute Walk Test PSN:6-Minute Walk Test Start: 12/16/20 13:56 Freq: Status: Active Protocol: [id number] Document 12/16/20 13:45 (Rec: 12/16/20 14:07 [id number]) 6 Minute Walk Test Date Performed 12/16/20 Time Performed 13:45 Height 6 ft 3 in Weight: 158.304 kg Weight in Pounds 349.[address]: Thaddeus Johnson FIO2 (% Oxygen) 36 Assistive device used: None Pre-test Oxygen Delivery Method Room Air Pulse Ox (%) 87 Pulse Rate (60-100 beats/min) 69 Dyspnea Josefina Scale (0-10) 0 Exertion Josefina Scale (6-20) 6 1st minute Oxygen Flow Rate (L/min) (L/min) 3 Oxygen Delivery Method Nasal Cannula Pulse Ox (%) 90 Pulse Rate (60-100 beats/min) 94 2nd minute Oxygen Flow Rate (L/min) (L/min) 4 Oxygen Delivery Method Nasal Cannula Pulse Ox (%) 88 Pulse Rate (60-100 beats/min) 103 H 3rd minute Oxygen Delivery Method Nasal Cannula Pulse Ox (%) 93 Pulse Rate (60-100 beats/min) 94 4th minute Oxygen Flow Rate (L/min) (L/min) 4 Oxygen Delivery Method Nasal Cannula Pulse Ox (%) 90 Pulse Rate (60-100 beats/min) 97 5th minute Oxygen Flow Rate (L/min) (L/min) 4 Oxygen Delivery Method Nasal Cannula Pulse Ox (%) 89 Pulse Rate (60-100 beats/min) 103 H 6th minute Oxygen Flow Rate (L/min) (L/min) 4 Oxygen Delivery Method Nasal Cannula Pulse Ox (%) 89 Pulse Rate (60-100 beats/min) 103 H Post-test Oxygen Flow Rate (L/min) (L/min) 4 Oxygen Delivery Method Nasal Cannula Pulse Ox (%) 93 Pulse Rate (60-100 beats/min) 97 Dyspnea Josefina Scale (0-10) 3 Exertion Josefina Scale (6-20) 13 Full Laps Walked 16 Partial Lap, Number of Tiles Walked 0 Total Distance Walked (ft) 944 12/16/20 14:00 Cardiopulmonary Services by Linda Mcnally Patient stated prior to test that he wears 3L of oxygen at home. He has had a sleep study in the past and qualified for a CPAP machine however could not get acclimated to wearing the mask and does not use it. Patient stated that he has been using his 3L of oxygen in place of this. On room air patients sat's were 87%, therefore test was initiated on 3L. At the 2 minute sapna patients sat's dropped to 88% therefore oxygen was increased to 4L. Sat's were maintained above 90% for the remainder of the test on 4L. Initialized on 12/16/20 14:00 - END OF NOTE Interpretation Interpretation: The patient was able to ambulate 944 feet over the course of 6 minutes. The patient was noted to be 87% on room air and was placed on 3 L with improvement to 90%. The patient required 4 L nasal cannula to maintain appropriate saturations throughout testing. Peak heart rate was noted at 103 bpm. These findings are consistent with a respiratory limitation exercise tolerance. Recommendations Recommendations: The patient requires 3 L nasal cannula at rest and 4 L with any exertion.
== END ==
PROVIDERS: PCP Family Medicine; Referring Provider Internal Medicine Critical Care Medicine; Visit Provider Internal Medicine Critical Care Medicine
DX: R09.02 Hypoxemia (principal)
CPT/HCPCS: 93306; 94618; Q9957; A4216; C8929

== ENCOUNTER 2020-12-27 10:49 | Day surgery (SDC) | payer OTHER, SELFPAY ==
[2020-12-15 10:55] VITALS: BMI 45.0
[2020-12-24 08:40] VITALS: BMI 45.0
--- NOTE | 2020-12-27 13:50 | PCM.OP.PRO ---
Assessment & Plan Assessment/Plan (1) A-fib: (2) Sleep apnea: QUALIFIERS: Sleep apnea type: obstructive Qualified Code(s): G47.33 - Obstructive sleep apnea (adult) (pediatric) (3) Pulmonary embolism: (4) Paroxysmal atrial fibrillation: (5) Morbid obesity: Procedure Report Date of Procedure: 12/27/20 CONSCIOUS SEDATION REPORT BRIEF HISTORY OF PRESENT ILLNESS: The patient is a 45-year-old male who presented to [facility] for an elective outpatient cardioversion due to underlying atrial fibrillation. The patient reports no PO intake since midnight. The patient does have a history of obstructive sleep apnea, but is noncompliant. The patient reports no history of smoking and COPD. The patient denies any recent constitutional symptoms such as fevers, chills, nausea or vomiting. The patient denies previous anesthetic complications. Patient's last ejection fraction was noted 56%. Patient did take Xarelto within 24 hours of the procedure. Patient had a previous cardioversion on 07/28/2019 requiring 120 mg of propofol to achieve appropriate sedation. PHYSICAL EXAMINATION: VITAL SIGNS: Reviewed and were acceptable. GENERAL: The patient is a male, in no apparent distress, speaking in full sentences. HEENT: Normocephalic, atraumatic. Mucous membranes are moist and pink. Good mouth opening noted. Trachea is midline. Good neck mobility. MP IV CHEST: S1, S2 irregularly irregular. No murmurs, rubs or gallops were noted. LUNGS: Clear to auscultation bilaterally without appreciable wheezes, rales or rhonchi. ABDOMEN: Soft, nontender, nondistended. Positive bowel sounds. EXTREMITIES: There is no clubbing, cyanosis or edema. ASA Class: II DESCRIPTION OF PROCEDURE: After confirmation of informed consent, the patient's anesthesia plan was reviewed in detail. Propofol was chosen. Risks and benefits were reviewed and the patient agreed to proceed. At 12:12 PM, the patient was given 40 mg of propofol. The patient required a total of 130 mg of propofol throughout the procedure to achieve appropriate sedation. The patient achieved an appropriate level of sedation and received 1 attempt synchronized cardioversion, at [address] Montano at the bedside. This was successful in achieving normal sinus rhythm. The patient was monitored until 12:25 PM, at which time the patient reached their baseline mental status and function. The patient tolerated the procedure well. COMPLICATIONS: None ESTIMATED BLOOD LOSS: None RECOMMENDATIONS: Okay to recover in usual fashion. Procedures Pulmonary CF Procedures Pulmonary: 46723 Con Sedation (12 minutes)
--- NOTE | 2020-12-31 15:25 | PCM.OP.BLANK ---
Problems Associated Problem List Diagnoses (1) Paroxysmal atrial fibrillation: Operative Report Date of Procedure: 12/27/20 DC cardioversion. 45-year-old man with a history of persistent atrial fibrillation. The patient was brought to the cardiac catheterization lab in the postabsorptive nonsedated state. Informed consent was obtained. The patient was seen by Dr. Johnson of the critical care division. Anterior-posterior pads were applied. The patient was administered 130 mg of intravenous propofol. 300 J of synchronized biphasic cardioversion energy were applied with prompt reversal to sinus rhythm. Patient tolerated the procedure well. Conclusion: Successful DC cardioversion from atrial fibrillation to sinus rhythm. Follow-up in office protocol.
== END 2020-12-27 13:20 | disposition home or self-care (01) ==
LOC: CLSP 10:50
PROVIDERS: PCP Family Medicine; Visit Provider Internal Medicine Cardiovascular Disease
DX: I48.0 Paroxysmal atrial fibrillation (principal); E66.01 Morbid (severe) obesity due to excess calories; G47.33 Obstructive sleep apnea (adult) (pediatric); Z91.19 Patient's noncompliance with other medical treatment and regimen; K21.9 Gastro-esophageal reflux disease without esophagitis; I10 Essential (primary) hypertension; Z86.711 Personal history of pulmonary embolism; E11.9 Type 2 diabetes mellitus without complications; Z87.891 Personal history of nicotine dependence
CPT/HCPCS: 92960; 93005; J7040

== ENCOUNTER → 2021-01-06 17:57 | Outpatient (CLI) | payer OTHER, SELFPAY ==
[2021-01-04 09:26] VITALS: BMI 45.0
== END ==
PROVIDERS: PCP Family Medicine; Referring Provider Family Medicine; Visit Provider Family Medicine
DX: R05 Cough (principal)
CPT/HCPCS: 87070; 87077; 87205

== ENCOUNTER → 2021-01-11 10:39 | Outpatient (CLI) | payer OTHER, SELFPAY ==
[2020-11-26 10:30] VITALS: BMI 43.7
[2021-01-04 09:26] VITALS: BMI 45.0
--- NOTE | 2021-01-11 14:36 | PFTCOMP_ITS ---
COMPLETE PULMONARY FUNCTION TEST INTERPRETATION Brief HPI: Patient is a 45 year old male, currently under the care of myself, who presents to [facility] for complete pulmonary function tests secondary to diagnosis of hypoxia. Respiratory therapist reports good effort and reproducible results. Interpretation: Forced expiration spirometry shows a mild large airways obstructive ventilatory defect with an FEV1 of 31% predicted. There is a significant bronchodilator response in FVC and FEV1 by strict ATS criteria. Spirograms are of good quality and plateau slowly, indicating slowly emptying areas of the lungs. The respiratory flow volume loop shows decreased expiratory flow rates at high lung volumes consistent with small airways obstruction. Lung volumes by body plethysmography were unable to be performed by the patient Diffusion capacity by carbon monoxide is decreased at 65% predicted. The airway resistance was not able to be obtained. No previous pulmonary function tests were available for review. Impression: Very severe ventilatory defect with relatively preserved diffusing capacity with concerns for mixed pattern. Lung volumes would be helpful.
== END ==
PROVIDERS: PCP Family Medicine; Referring Provider Internal Medicine Critical Care Medicine; Visit Provider Internal Medicine Critical Care Medicine
DX: J45.909 Unspecified asthma, uncomplicated (principal)
CPT/HCPCS: 94060; 94729

== ENCOUNTER → 2021-01-14 14:01 | Outpatient (CLI) | payer OTHER, SELFPAY ==
[2021-01-04 09:26] VITALS: BMI 45.0
--- NOTE | 2021-01-14 14:06 | CT_ITS ---
STUDY: CTA CHEST REASON FOR EXAM: Male, 45 years old. History of cough and hypoxia. History of asthma. RADIATION DOSAGE (If Supplied By Facility): CTDIvol = ( 49.56 ) mGy, DLP = ( 629.35 ) mGycm TECHNIQUE: The examination was performed with the intravenous administration of IV 100ML ISOVUE 370. Post-processing of the angiographic images was performed, with multiplanar reformation and 3D reconstruction. Individualized dose optimization techniques were used for this CT. COMPARISON: None. FINDINGS: Normal enhancement of the main pulmonary artery and right and left pulmonary arteries. Normal enhancement of the bilateral peripheral pulmonary arteries. There is no demonstrated pulmonary embolism. Normal thoracic aorta and visualized great vessels. There is no demonstrated aortic dissection. Normal heart and pericardium. Normal mediastinum. Normal hilar regions. Normal visualized trachea and bronchi. The lungs are well expanded. Mild degree of increased markings at the lung bases suggestive of bibasilar atelectasis. Normal pleura. Normal chest wall structures. Normal osseous structures. Small hiatal hernia. CT/CTA Chest W/WO Contrast IMPRESSION: No evidence of pulmonary embolism. Findings in keeping with bibasilar atelectasis. Electronically Signed: Kenny Espinal MD at 14:57 EDT , Service support ,
== END ==
PROVIDERS: PCP Family Medicine; Referring Provider Family Medicine; Visit Provider Family Medicine
DX: R09.02 Hypoxemia (principal); R05 Cough
CPT/HCPCS: 71275; Q9967

== ENCOUNTER → 2021-02-11 20:00 | Outpatient (CLI) | payer OTHER, SELFPAY ==
[2021-01-26 07:32] VITALS: BMI 46.5
== END ==
PROVIDERS: PCP Family Medicine; Referring Provider Nurse Practitioner Acute Care; Visit Provider Nurse Practitioner Acute Care
DX: G47.33 Obstructive sleep apnea (adult) (pediatric) (principal)
CPT/HCPCS: 95811

== ENCOUNTER → 2021-02-14 14:22 | Outpatient (CLI) | payer OTHER, SELFPAY ==
[2021-01-26 07:32] VITALS: BMI 46.5
[2021-02-14 16:25] LABS: BNP,B-Type NATRIURETIC PEPTIDE 73.1 pg/mL (0-100)
[2021-02-14 16:34] LABS: Anion Gap 7 (5-15); BUN 17 mg/dL (7-18); BUN/Creat Ratio 21.7 RATIO (10-20); Calcium,Total 9.3 mg/dL (8.5-10.1); Chloride 99 mmol/L (98-107); Creatinine, Serum 0.78 mg/dL (0.70-1.30); EST Glomerular Filtration Rate 113 mL/min (>60); Est Glom Filt Rate - Afr Amer 137 mL/min (>60); Glucose 140 mg/dL (74-106); Magnesium 1.6 mg/dL (1.6-2.6); Potassium 4.1 mmol/L (3.5-5.1); Sodium Level 138 mmol/L (136-145); Thyroid Stim Hormone (TSH) 1.77 uIU/mL (0.358-3.74)
== END ==
PROVIDERS: PCP Family Medicine; Referring Provider Family Medicine; Visit Provider Family Medicine
DX: I48.91 Unspecified atrial fibrillation (principal); I50.9 Heart failure, unspecified
CPT/HCPCS: 36415; 80048; 83735; 83880; 84443

== ENCOUNTER → 2021-03-15 10:59 | Outpatient (CLI) | payer OTHER, SELFPAY ==
[2021-03-11 11:42] VITALS: BMI 46.5
[2021-03-15 12:02] LABS: Absolute Neutrophil Count 4.3 X10^3/uL (2.0-7.7); Basophil# 0.04 X10^3/uL; Basophil% 0.6 % (0-1); Eosinophil# 0.34 X10^3/uL; Eosinophils% 5.2 % (0-5); Hematocrit 45.5 % (40-54); Lymphocyte % 21.3 % (19-41); Mean Corpuscular Hgb 31.9 pg (27.0-32.0); Mean Corpuscular Volume 96.8 fL (80-94); Mean Platelet Vol. 9.3 fl (6.2-12.0); Monocyte% 7.6 % (0-10); NRBC Flagged by Analyzer 0 % (0-5); Neutrophil # 4.25 X10^3/uL (2.7-7.7); Neutrophil % 64.7 % (47-70); Platelet Count 190 K/mm3 (150-450); RBC Distribution Width CV 12.6 % (11.6-14.6); RBC Distribution Width SD 45.1 fl (35.1-43.9); White Blood Count 6.6 K/mm3 (4.4-11.0)
[2021-03-15 12:12] LABS: Erythrocyte Sedimentation Rate 12 mm/hr (0-20)
== END ==
PROVIDERS: PCP Family Medicine; Referring Provider Nurse Practitioner Family; Visit Provider Nurse Practitioner Family
DX: I48.0 Paroxysmal atrial fibrillation (principal); R50.9 Fever, unspecified
CPT/HCPCS: 36415; 85025; 85652; 86140; 87040; 87086; 93225; 93226

== ENCOUNTER → 2021-05-17 13:50 | Outpatient (CLI) | payer OTHER, SELFPAY ==
[2021-05-17 15:48] LABS: Anion Gap 9 (5-15); BUN 21 mg/dL (7-18); BUN/Creat Ratio 24.2 RATIO (10-20); Calcium,Total 9.4 mg/dL (8.5-10.1); Chloride 90 mmol/L (98-107); Creatinine, Serum 0.87 mg/dL (0.70-1.30); EST Glomerular Filtration Rate 101 mL/min (>60); Est Glom Filt Rate - Afr Amer 122 mL/min (>60); Glucose 178 mg/dL (74-106); Potassium 3.3 mmol/L (3.5-5.1); Sodium Level 136 mmol/L (136-145)
[2021-05-17 15:50] LABS: BNP,B-Type NATRIURETIC PEPTIDE 47.4 pg/mL (0-100)
== END ==
PROVIDERS: PCP Family Medicine; Visit Provider Nurse Practitioner Gerontology
DX: R03.0 Elevated blood-pressure reading, without diagnosis of hypertension (principal); R06.00 Dyspnea, unspecified
CPT/HCPCS: 36415; 80048; 83880

== ENCOUNTER 2021-06-04 18:32 | Inpatient (IN) | payer OTHER, SELFPAY ==
[2021-06-04] VITALS (15 sets, daily range): BP systolic 97–176; BP diastolic 44–122; PULSE 90–410; RESP 18–22; TEMP 36.1–36.5; O2SAT 78–95; BMI 53.8; BMI 52.4
--- NOTE | 2021-06-04 18:34 | EKG12_ITS ---
Test Reason : CODE BLUE Blood Pressure : / mmHG Vent. Rate : 091 BPM Atrial Rate : 202 BPM P-R Int : 000 ms QRS Dur : 114 ms QT Int : 362 ms P-R-T Axes : 000 048 173 degrees QTc Int : [address] & T wave abnormality, consider lateral ischemia Abnormal ECG Confirmed by ASHWIN GARDINER, YO ([id number]), primer expeditor and drier KIARRA OSBORN ([id number]) on 06/07/2021 9:34:11 AM Referred By: AKANKSHA Confirmed By:YO CHRISTOPHER MD
--- NOTE | 2021-06-04 18:36 | RAD_ITS ---
STUDY: X-RAY CHEST REASON FOR EXAM: Male, 46 years old. ett tube TECHNIQUE: AP COMPARISON: 12/13/2020 FINDINGS: Endotracheal tube present with the tip terminating 5.2 cm above the wesley. EKG leads project over the chest. Esophagogastric tube extends the left upper stomach. Lungs are hypoexpanded with atelectasis in the left lung base and right midlung. There is no demonstrated pleural abnormality. Heart is mildly enlarged. There is widening of the superior mediastinum. Normal visualized pulmonary arteries. Normal visualized aortic arch and descending thoracic aorta. No acute bony process. There is no demonstrated abnormality of the visualized soft tissue structures of the upper abdomen. RAD/Chest 1 View (Portable) IMPRESSION: 1. Widening of the superior mediastinum raises possibility of mediastinal process such as hematoma. Recommend correlating with CT, if clinically appropriate. 2. Hypoinflation with bilateral atelectasis. Electronically Signed: Will Tian MD ([place]oks) at 19:07 EDT , Service support ,
[2021-06-04] MEDS: Etomidate 20 MG/10 ML Vial IV (18:47)
[2021-06-04] MEDS: Succinylcholine Chloride 200 MG/10 ML Vial IV (18:48)
[2021-06-04] MEDS: Propofol 10MG/Ml 1,000 MG/100 ML Bottle 10.8 MG CONT INF (18:50)
[2021-06-04 18:51] LABS: Hemoglobin 16.4 g/dL (13.0-16.5); Mean Corp Hgb Conc 30.9 g/dL (32-36); Mean Corpuscular Hgb 32.3 pg (27.0-32.0); Mean Corpuscular Volume 104.5 fL (80-94); Mean Platelet Vol. 9.6 fl (6.2-12.0); POSITIVE COUNT YES; POSITIVE MORPHOLOGY YES; Platelet Count 182 K/mm3 (150-450); RBC Distribution Width CV 14.3 % (11.6-14.6); RBC Distribution Width SD 55.3 fl (35.1-43.9); Red Blood Count 5.07 M/mm3 (4.6-6.2)
--- NOTE | 2021-06-04 18:53 | CT_ITS ---
STUDY: CT BRAIN WITHOUT CONTRAST REASON FOR EXAM: Male, 46 years old. ALOC RADIATION DOSAGE (If Supplied By Facility): CTDIvol = ( 44.99 ) mGy, DLP = ( 829.85 ) mGycm TECHNIQUE: Transaxial CT imaging of the brain was performed without administration of intravenous contrast material. Individualized dose optimization techniques were used for this CT. COMPARISON: No relevant priors. FINDINGS: Normal soft tissue structures. Normal calvarium. Endotracheal and enteric tube partially visualized. Normal size ventricles and extra-axial spaces for the patient''s age. Normal white matter tracts of the cerebral hemispheres. Normal basal ganglia and thalami. Normal brainstem. Normal cerebellum. There is no intracranial hemorrhage. There are no findings of an acute ischemic infarction. Normal visualized paranasal sinuses. CT/Brain/Head without Contrast IMPRESSION: No acute intracranial hemorrhage or mass effect. Electronically Signed: Will Tian MD ([facility]) at 19:58 EDT , Service support ,
--- NOTE | 2021-06-04 18:53 | EDS_ITS ---
HPI History of Present Illness Chief Complaint: CPR Detail of Chief Complaint: Found down and unresponsive. Informant: spouse/S.O., family and EMS Limited: coma Onset/Context/Timing Onset: Today Context: Sudden Onset Timing: Continuous Current Severity: Severe Maximum Severity: Severe Associated Symptoms Associated Symptoms: abdominal pain, chest pain, chills, cough, fever, vomiting, diarrhea, palpitations and suicidal thoughts Narrative Narrative: 46-year-old male history of A. fib, CHF on Xarelto and diabetes. No significant significant surgeries. No recent hospitalizations. According to the family had recently gone up to [employer] he was eating fries and he either choked and then went out or had a medical event and then went out. Squad was called they got there 8 to 10 minutes after the call. On EMS arrival the patient was not breathing his head and neck were blue, he was in asystole and pulseless. They placed a left shoulder IO and placement was treated with epinephrine x4. They did get a spontaneous pulse back. The place and I gel airway. Prior similar symptoms: No Recent Illness/Hospitalization: No PFSH PFSH Medical History Anxiety Asthma Bulging of cervical intervertebral disc Cervical spondylosis Chronic neck pain Claustrophobia Depression Fatty liver GERD (gastroesophageal reflux disease) Morbid obesity Obstructive sleep apnea Paroxysmal atrial fibrillation Primary hypogonadism in male Pulmonary embolism Sleep apnea Type 2 diabetes mellitus without complications Wears glasses Home Medications omeprazole 20 mg PO DAILY 09/28/14 [History Last Taken 12/27/20] bupropion HCl 150 mg tablet,12 hr sustained-release 150 mg PO DAILY 06/05/19 [History Last Taken 12/27/20] citalopram 20 mg tablet 20 mg PO DAILY 06/05/19 [History Last Taken 12/27/20] albuterol sulfate 1 - 2 puff INHALATION Q4H PRN PRN 06/15/19 [History Last Taken Unknown] rivaroxaban 20 mg tablet 20 mg PO DAILY tab 06/15/19 [History Last Taken 12/27/20] albuterol sulfate 2.5 mg INHALATION Q4H PRN ml 06/16/19 [History Last Taken Unknown] exenatide microspheres 2 mg subcutaneous extended release suspension 2 mg SC QWEEK 12/15/20 [History Last Taken Unknown] testosterone cypionate 200 mg/mL intramuscular oil 200 mg IM Q2W #1 ml 12/15/20 [History Last Taken Unknown] umeclidinium 62.5 mcg-vilanterol 25 mcg/actuation powdr for inhalation 1 inh INHALATION QDAY #60 ea 01/26/21 [Rx Last Taken Unknown] metolazone 2.5 mg tablet 2.5 mg PO DAILY 03/11/21 [History Last Taken Unknown] metoprolol succinate 25 mg tablet,extended release 24 hr 25 mg PO DAILY #90 tab 03/16/21 [Rx Last Taken Unknown] ropinirole 1 mg tablet 1 mg PO QHS #60 tab 05/10/21 [Rx Last Taken Unknown] alprazolam 2 mg tablet 2 mg PO QHS #10 tab 05/17/21 [Rx Last Taken Unknown] diltiazem HCl 180 mg capsule,extended release 24 hr 180 mg PO BID #180 cap 05/17/21 [Rx Last Taken Unknown] potassium chloride 20 mEq tablet,extended release 20 meq PO BID #60 tab 05/17/21 [Rx Last Taken Unknown] allopurinol 100 mg PO DAILY 06/04/21 [History Last Taken Unknown] furosemide 80 mg PO DAILY 06/04/21 [History Last Taken Unknown] levofloxacin 500 mg PO DAILY 06/04/21 [History Last Taken Unknown] prednisone 50 mg PO DAILY 06/04/21 [History Last Taken Unknown] Allergy/AdvReac Type Severity Reaction Status Date / Time morphine Allergy Severe Anaphylaxis Verified 05/17/21 12:59 Family History Other Hypertension Surgical History History of cardioversion (12/27/20) History of herniorrhaphy Social History Smoking Status: Former smoker quit date: 08/06/00 pack-years: 11 Smokeless tobacco user: chewing tobacco how long ago did patient quit smokin alcohol intake: current alcohol intake frequency: 0-2 drinks per day substance use type: does not use caffeine: Yes Type: carbonated beverages Number of servings: 3 ROS ROS ED ROS Narrative No recent illness per the family. Review of Systems ROS Unobtainable: due to endotracheal tube; Denies due to encephalopathy Constitutional Constitutional ED: Denies chills or fever(s) Eyes Eyes: Denies change in vision ENT ENT ED: Denies ear pain Cardiovascular Cardiovascular: Denies chest pain or palpitations Respiratory/Chest Respiratory/Chest: Denies cough or dyspnea Gastrointestinal Gastrointestinal: Denies abdominal pain, diarrhea, nausea or vomiting Genitourinary Genitourinary ED: Denies dysuria Musculoskeletal Musculoskeletal: Denies myalgias Integumentary Denies rash Neurologic Neurologic: Denies headache(s) Psychiatric Psychiatric: Denies depression Endocrine Endocrinology: Denies polyuria Hematologic/Lymphatic Hematologic/Lymphatic: Denies easy bruising Allergic/Immunologic Allergic/Immunologic ED: Denies urticaria EXAM Physical Exam Narrative Exam Narrative: Middle-age morbidly obese male. On presentation is afebrile. Current blood pressure is 107/60 pulse ox on presentation was 78% bag and I gel. Currently is over 90% with an ET tube in place. HEENT exam pupils are round reactive to light about 2 mm bilaterally. Moist mucous membranes. He does have small emesis in his posterior ferry but no obvious foreign bodies or significant food debris. Lungs clear bilaterally with bagging. Heart irregularly irregular rate about 90 appears to be A. fib on the monitor. Abdomen morbidly obese but nontender. Extremities no deformities. Neurologically is completely unresponsive prior to any medications given to him to sedate him. Const Vital Signs: 06/04/21 18:33 06/04/21 18:37 06/04/21 18:40 Temperature 97.7 F L 97.7 F L Temperature Source Temporal Temporal Pulse Rate 94 97 107 H Respiratory Rate 20 H 22 H 18 Respiratory Effort Mechanically Ventilated Blood Pressure 107/68 Blood Pressure Mean 81 Pulse Ox 78 90 81 Oxygen Delivery Method Mechanical Ventilator Oxygen Flow Rate (L/min) Fraction of Inspired Oxygen (FIO2) 100 06/04/21 18:54 06/04/21 19:06 06/04/21 19:16 Temperature 97.7 F L 97.3 F L Temperature Source Temporal Core Pulse Rate 117 H 109 H 410 H Respiratory Rate 20 H 18 19 H Respiratory Effort Blood Pressure 127/76 H 176/122 H 168/88 H Blood Pressure Mean 93 140 114 Pulse Ox 86 88 90 Oxygen Delivery Method Mechanical Ventilator Mechanical Ventilator Mechanical Ventilator Oxygen Flow Rate (L/min) 100 Fraction of Inspired Oxygen (FIO2) Positive well nourished, well developed and obese; Negative for cachectic, contractures or unkempt General Appearance ED: well developed; Negative for unkempt, cachectic, contractures, NAD or pallor Nutritional Appearance: obese; Negative for cachectic HEENT normocephalic and atraumatic; Negative for trauma or tenderness Eyes PERRL; Negative for EOMs intact bilaterally Neck No full ROM, no lymphadenopathy, No supple and no JVD Cardio S1 normal heart sound, S2 normal heart sound and no murmurs Cardio Narrative: Atrial fibrillation rate about 90. GI non-tender, non-distended and no masses Inspection: Negative for abdominal distention Auscultation: normoactive bowel sounds Palpation: soft; Negative for tender or guarding Back/Spine no CVA tenderness Neuro No oriented x3 Neuro Narrative: Unresponsive to noxious or verbal stimuli. On presentation he was not moving any extremities. Sensorium / Orientation: orientation impaired; Negative for alert, oriented to person, oriented to place or oriented to time Psych Negative for mental status grossly normal Appearance: Negative for unkempt Activity / Motor Behavior: other Skin General Skin Exam: Negative for jaundice or pallor Lesions: no lesions Rashes: no rashes and No rashes noted MDM MDM MDM Narrative Medical decision making narrative: Sniffing and hypoxic brain injury. Also obtain a CTA of his chest due to the wide mediastinum. I spoken to the hospitalist will be admitted to the ICU.46-year-old male with some type of event either choking or primary cardiac or other event was found down, unresponsive, asystole and pulseless. Squad was called arrived 8 to 10 minutes into the episode and had a spontaneous pulse after 4 doses of IV epinephrine about 18 minutes into the episode. On their arrival his head and neck were blue. He was apneic and unresponsive. This may have been acute cardiac event or dysrhythmia. We will also get a CT of his brain due to him being on blood thinners and a fal l. Patient undergo a cardiac work-up and be admitted to the ICU. Repeat exam patient is resting on the vent sedated with propofol and fentanyl. I spoke with family at length. One major concern is a significant hypoxic brain injury given his CO2 and cardiopulmonary arrest. CT of the chest is being obtained to the wide mediastinum. Hospitalist wanted me to treat him with IV Unasyn in case there was an aspiration. Patient will be admitted to the ICU. He is extremely critical and family understands the very grave prognosis. Lab Data Attestation: I reviewed the patient's lab results. Lab results narrative: CBC shows a white count of 13. Hemoglobin is 16. PT/INR 18 and 1. PTT of 32. Sodium 133. Anion gap 18. BUN of 23 creatinine 1.2. Glucose of 279. Liver enzymes are elevated. Lactic acid of 11.2. Arterial blood gas showed a pH of 6.99 with a PCO2 of 95 and a PO2 of 78 consistent with his respiratory failure and is CO2 retention. Labs: Laboratory Results - last 24 hr 06/04/21 06/04/21 06/04/21 18:35 18:35 18:35 WBC 13.0 H RBC 5.07 Hgb 16.4 Hct 53.0 MCV 104.5 H MCH 32.3 H MCHC 30.9 L RDW Std Deviation 55.3 H RDW Coeff of Salazar 14.3 Plt Count 182 MPV 9.6 Neut % (Auto) Not Reportable PT 18.2 H INR 1.6 APTT 32.2 Sodium 133 L Potassium 3.6 Chloride 89 L Carbon Dioxide 26.0 Anion Gap 18 H BUN 23 H Creatinine 1.20 Estim Creat Clear Calc 84.43 Est GFR (MDRD) Af Amer 84 Est GFR (MDRD) Non-Af 69 BUN/Creatinine Ratio 19.2 Glucose 279 H Lactic Acid Calcium 8.3 L Total Bilirubin 0.60 Direct Bilirubin 0.34 H AST 246 H ALT 262 H Alkaline Phosphatase 198 H Troponin I High Sens 11 Total Protein 7.3 Albumin 3.3 Globulin 4.0 06/04/21 18:35 WBC RBC Hgb Hct MCV MCH MCHC RDW Std Deviation RDW Coeff of Salazar Plt Count MPV Neut % (Auto) PT INR APTT Sodium Potassium Chloride Carbon Dioxide Anion Gap BUN Creatinine Estim Creat Clear Calc Est GFR (MDRD) Af Amer Est GFR (MDRD) Non-Af BUN/Creatinine Ratio Glucose Lactic Acid 11.2 H* Calcium Total Bilirubin Direct Bilirubin AST ALT Alkaline Phosphatase Troponin I High Sens Total Protein Albumin Globulin ABG Data ABG results: ABG 06/04/21 19:07 Specimen Type ART Sample Site L Radial pH 7.00 L* Bicarbonate Actual 23.4 Total CO2 26 Base Excess -8 L O2 Saturation 86 L O2 % 100 ABG pCO2 95.2 H* ABG pO2 79 Gavino Test Positive Respiration Rate 18 O2 Delivery Device Adult Vent Vent Mode AC Tidal Volume 500 POC PEEP 12 Crit Call To/Read Back Yes Radiography Chest X-Ray - ED: 1 View Diagnostic Testing: Clinical Impression(s) from Imaging Studies Chest X-Ray 06/04/21 18:36 IMPRESSION: 1. Widening of the superior mediastinum raises possibility of mediastinal process such as hematoma. Recommend correlating with CT, if clinically appropriate. 2. Hypoinflation with bilateral atelectasis. Electronically Signed: Will Tian MD ([place]) at 19:07 EDT , Service support , Rhythm Strip Rhythm Strip: A-fib Rate: 91 EKG Initial EKG: Attestation: I personally reviewed and interpreted this EKG as follows: Interpretation: Sinus Rhythm and Atrial Fibrillation Comments: Atrial fibrillation rate of 91. There is ST depression in leads V2 through V6. There is no ST elevation. Critical Care Time Critical care time (excluding procedures): 30-74 minutes, Including time spent:, Discussing w/Patient &/or Family/Manufacturing Leader, Discussing w/Consultants, Arranging Admission or Transfer, Performing Direct Patient Care at Bedside and - (35 min) Discharge Plan Dx/Rx/DC Orders Clinical Impression: Asystole, Chronic a-fib, Endotracheally intubated, Respiratory failure, History of diabetes mellitus, Hypoxic brain injury Disposition Disposition: Acute Care [facility]
[2021-06-04 18:58] LABS: Differential Indicated MANUAL DIFF
--- NOTE | 2021-06-04 19:00 | CM.ED ---
Addendum entered by Mikaela Ohara 06/04/21 22:02: SW called ICU and spoke to Sean. Got the information about visits for visitation and that it is one healthy support person and visits are 10-6. PARAS provided that patient's , Erma with phone number for ICU and information about visitation hours. Original Note: PARAS Note Referral Source: Code Blue Referral Reason: Code Blue SW met with patient's , Erma and her older son. Erma said that friends are watching their younger 2 children, 11 and 10 years old. Erma said that the son said that patient was eating friends and then collapsed and went purple . Erma said that patient has had cardioverson twice and was not successful and still in afib. Erma said patient has a pharmacist hospital, advertising sales manager and his PCP is Darrick. Erma's other older son came into the hospital to be support. Erma said a congregation friend is also coming to the ED for support. SW provided emotional support. SW remains available. Plan: Emotional Support Mikaela SANDERSON
--- NOTE | 2021-06-04 19:05 | ED.RN ---
PT OPENING HIS EYES AND GASPING. DR VALE NOTIFIED OF THE SAME. VERBAL ORDER OBTAINED FOR ATIVAN IV
[2021-06-04 19:08] LABS: International Normalized Ratio 1.6; Prothrombin Time (Protime)PT. 18.2 SECONDS (11.7-14.9)
[2021-06-04 19:09] LABS: AST(SGOT) 246 U/L (15-37); Alanine Aminotransfer ALT/SGPT 262 U/L (16-61); Albumin, Serum 3.3 g/dL (3.2-5.0); Alkaline Phosphatase 198 U/L (45-117); Anion Gap 18 (5-15); BUN 23 mg/dL (7-18); BUN/Creat Ratio 19.2 RATIO (10-20); Bilirubin, Direct 0.34 mg/dL (0.00-0.30); Calcium,Total 8.3 mg/dL (8.5-10.1); Chloride 89 mmol/L (98-107); EST Glomerular Filtration Rate 69 mL/min (>60); Est Glom Filt Rate - Afr Amer 84 mL/min (>60); Estimated Creatinine Clearance 84.43 ml/min; Glucose 279 mg/dL (74-106); Partial Thromboplast Time 32.2 Seconds (24.1-36.2); Potassium 3.6 mmol/L (3.5-5.1); Protein, Total 7.3 g/dL (6.4-8.2); Sodium Level 133 mmol/L (136-145); Troponin-I HS 11 pg/mL (3.0-78.0)
[2021-06-04] MEDS: LORazepam 2 MG/ML Syringe IV (19:09)
--- NOTE | 2021-06-04 19:11 | CPS ---
Critical ABG values given to Dr Merino at this time
[2021-06-04 19:16] LABS: Allen Test Positive; Base Excess -8 mmol/L (-2 to +2); Bicarbonate 23.4 mmol/L (22-26); Blood Gas Specimen Type ART; FI02 100; Mode AC; O2 Delivery Device Adult Vent; PEEP 12; PO2 79 mmHG (75-100); RR 18; SITE L Radial; SO2 86 % (95-99); Total Carbon Dioxide 26 mmol/L; Vt 500; pCO2 95.2 mmHg (35-45)
[2021-06-04 19:29] LABS: Lactic Acid 11.2 mmol/L (0.4-1.9)
--- NOTE | 2021-06-04 19:30 | ED.RN ---
Pt transported to CT, patient being bagged by RT.
[2021-06-04] MEDS: Vecuronium Bromide 10 MG/10 ML Vial IV (19:34)
--- NOTE | 2021-06-04 19:34 | ED.RN ---
PT CONTINUES TO OPEN HIS EYES. OCCURRING MORE FREQUENTLY. EYES LIDS APPEAR TO BE JUMPING OR TWITCHING. DR VALE NOTIFIED. ORDER OBTAINED FOR VECURONIUM.
[2021-06-04 19:48] LABS: Lymphocyte 19 % (19-41); Metamyelocyte 1 % (0-1); Monocyte 2 % (0-10); Myelocyte 2 % (0-0); Neutrophil-Band 1 % (0-5); Neutrophil-Segmented 75 % (47-70); Platelet Estimate ADEQUATE (ADEQ); Red Cell Morphology NORM C+C NORMAL (NORM C&C); Total Cells Counted 100 (MANUAL DIFF)
[2021-06-04 19:49] LABS: Absolute Lymphocyte Count 2.47 X10^3/uL (0.83-4.51); Absolute Neutrophil Count 9.9 X10^3/uL (2.0-7.7)
--- NOTE | 2021-06-04 19:52 | CT_ITS ---
STUDY: CTA CHEST REASON FOR EXAM: Male, 46 years old. widened mediastinum RADIATION DOSAGE (If Supplied By Facility): CTDIvol = ( 41.74 ) mGy, DLP = ( 799.37 ) mGycm TECHNIQUE: The examination was performed with the intravenous administration of IV 100mL [id number]-370. Post-processing of the angiographic images was performed, with multiplanar reformation and 3D reconstruction. Individualized dose optimization techniques were used for this CT. COMPARISON: None. FINDINGS: Endotracheal tube terminates just above the level of the aortic arch. Esophagogastric tube extends to the upper stomach, tip not fully visualized. Normal enhancement of the main pulmonary artery and right and left pulmonary arteries. Normal enhancement of the bilateral peripheral pulmonary arteries. There is no demonstrated pulmonary embolism. Normal thoracic aorta and visualized great vessels. There is no demonstrated aortic dissection. The heart is mildly enlarged. Widened mediastinum on previous chest x-ray correlates to mediastinal lipomatosis. Normal hilar regions. Normal visualized trachea and bronchi. No pneumothorax. Dense airspace consolidation in the dependent portions of bilateral upper lobes and throughout the lower lobes. Normal pleura. Normal chest wall structures. There are degenerative changes of thoracic spine. Normal visualized upper abdomen. CT/CTA Chest W/WO Contrast IMPRESSION: 1. No mediastinal mass or hematoma. 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 2. No central or segmental pulmonary embolism. 3. Multilobar dense airspace consolidation suggesting pneumonia. Electronically Signed: Will Tian MD ([place]) at 20:59 EDT , Service support ,
[2021-06-04 19:57] LABS: Bacteria 0 SEEN /hpf (None Seen)
[2021-06-04 20:01] LABS: Color, Urine Yellow (Yellow); Glucose, Dipstick 50 mg/dl (Normal); Ketone-Dipstick 5 mg/dl (Negative); Leukocyte Esterase-Dipstick 25 /ul (Negative); Nitrite-Dipstick Negative (Negative); Occult Blood-Urine 150 /ul (Negative); Protein-Dipstick 500 mg/dl (Negative); Specific Gravity, Urine 1.015 (1.002-1.030); Urine Bilirubin Dipstick Negative (Negative); Urine Clarity Cloudy (Clear); Urine Urobilinogen 1 mg/dl (Normal); Urine pH 6.5 (5.0 - 8.0)
--- NOTE | 2021-06-04 20:14 | ED.RN ---
transporting patient back to CT for CTA, patient being bagged by RT.
[2021-06-04 20:29] LABS: Mucous, Urine 2+ /hpf (<or=2+); Red Blood Cells-Urine 10-25 SEEN /hpf (0-5); Squamous Epithelial Cells - UA 5-10 SEEN /hpf (0-5); White Blood Cells 50-100 SEEN /hpf (0-5)
--- NOTE | 2021-06-04 20:29 | PCM.HP.STD ---
HPI - General General Date of Admission: 06/04/21 HPI Narrative AYDIN MCBRIDE, is a 46 M with a significant history of obstructive sleep apnea on BiPAP; CHF; Type 2 diabetes and on [id number] home oxygen who presents to the emergency department with unresponsiveness. History was taken from emergency department doctor and patient's . Reportedly patient was found to have fries in his mouth. He then fell. CPR was initiated outpatient. Patient received 4 rounds of epinephrine and patient achieved ROSC before hospitalization. Patient was reported patient is on present prednisone and antibiotics for chest congestion. FORMERLY [facility] Medical History Anxiety Asthma Bulging of cervical intervertebral disc Cervical spondylosis Chronic neck pain Claustrophobia Depression Fatty liver GERD (gastroesophageal reflux disease) Morbid obesity Obstructive sleep apnea Paroxysmal atrial fibrillation Primary hypogonadism in male Pulmonary embolism Sleep apnea Type 2 diabetes mellitus without complications Wears glasses Medical History unable to obtain Home Medications omeprazole 20 mg PO DAILY 09/28/14 [History Last Taken 12/27/20] bupropion HCl 150 mg tablet,12 hr sustained-release 150 mg PO DAILY 06/05/19 [History Last Taken 12/27/20] citalopram 20 mg tablet 20 mg PO DAILY 06/05/19 [History Last Taken 12/27/20] albuterol sulfate 1 - 2 puff INHALATION Q4H PRN PRN 06/15/19 [History Last Taken Unknown] rivaroxaban 20 mg tablet 20 mg PO DAILY tab 06/15/19 [History Last Taken 12/27/20] albuterol sulfate 2.5 mg INHALATION Q4H PRN ml 06/16/19 [History Last Taken Unknown] exenatide microspheres 2 mg subcutaneous extended release suspension 2 mg SC QWEEK 12/15/20 [History Last Taken Unknown] testosterone cypionate 200 mg/mL intramuscular oil 200 mg IM Q2W #1 ml 12/15/20 [History Last Taken Unknown] umeclidinium 62.5 mcg-vilanterol 25 mcg/actuation powdr for inhalation 1 inh INHALATION QDAY #60 ea 01/26/21 [Rx Last Taken Unknown] metolazone 2.5 mg tablet 2.5 mg PO DAILY 03/11/21 [History Last Taken Unknown] metoprolol succinate 25 mg tablet,extended release 24 hr 25 mg PO DAILY #90 tab 03/16/21 [Rx Last Taken Unknown] ropinirole 1 mg tablet 1 mg PO QHS #60 tab 05/10/21 [Rx Last Taken Unknown] alprazolam 2 mg tablet 2 mg PO QHS #10 tab 05/17/21 [Rx Last Taken Unknown] diltiazem HCl 180 mg capsule,extended release 24 hr 180 mg PO BID #180 cap 05/17/21 [Rx Last Taken Unknown] potassium chloride 20 mEq tablet,extended release 20 meq PO BID #60 tab 05/17/21 [Rx Last Taken Unknown] allopurinol 100 mg PO DAILY 06/04/21 [History Last Taken Unknown] furosemide 80 mg PO DAILY 06/04/21 [History Last Taken Unknown] levofloxacin 500 mg PO DAILY 06/04/21 [History Last Taken Unknown] prednisone 50 mg PO DAILY 06/04/21 [History Last Taken Unknown] Allergy/AdvReac Type Severity Reaction Status Date / Time morphine Allergy Severe Anaphylaxis Verified 05/17/21 12:59 Family History Other Hypertension Family History unable to obtain Surgical History History of cardioversion (12/27/20) History of herniorrhaphy Social History Smoking Status: Former smoker quit date: 08/06/00 pack-years: 11 Smokeless tobacco user: chewing tobacco how long ago did patient quit smokin alcohol intake: current alcohol intake frequency: 0-2 drinks per day substance use type: does not use caffeine: Yes Type: carbonated beverages Number of servings: 3 ROS Review of Systems ROS Unobtainable: due to encephalopathy Vital Signs Vital Signs Vital Signs: 06/04/21 18:33 06/04/21 18:37 06/04/21 18:40 Temperature 97.7 F L 97.7 F L Temperature Source Temporal Temporal Pulse Rate 94 97 107 H Respiratory Rate 20 H 22 H 18 Respiratory Effort Mechanically Ventilated Blood Pressure 107/68 Blood Pressure Mean 81 Pulse Ox 78 90 81 Oxygen Delivery Method Mechanical Ventilator Oxygen Flow Rate (L/min) Fraction of Inspired Oxygen (FIO2) 100 06/04/21 18:54 06/04/21 19:06 06/04/21 19:16 Temperature 97.7 F L 97.3 F L Temperature Source Temporal Core Pulse Rate 117 H 109 H 410 H Respiratory Rate 20 H 18 19 H Respiratory Effort Blood Pressure 127/76 H 176/122 H 168/88 H Blood Pressure Mean 93 140 114 Pulse Ox 86 88 90 Oxygen Delivery Method Mechanical Ventilator Mechanical Ventilator Mechanical Ventilator Oxygen Flow Rate (L/min) 100 Fraction of Inspired Oxygen (FIO2) Weight Weight: 180 kg Body Mass Index (BMI) 53.8 Physical Exam Narrative Physical exam: General: Obese. Head: Normocephalic, atraumatic, no tenderness Eyes: PERRLA, EOMI ENT, no trauma, moist mucous membranes, no rhinorrhea Neck: Nontender, full range of motion, no spinal tenderness, deformities, step-off CVS: Irregularly irregular rate and rhythm. Tachycardia. S1-S2 present. No murmur, gallop or rub. Respiratory : clear to auscultation bilaterally, chest wall nontender, no wheezing Abdomen: Obese. Soft, nontender, nondistended, normal bowel sounds, no masses : Maxwell catheter in place Back: Nontender, no CVA tenderness, no midline spinal tenderness, deformities, step-offs Extremities: Nontender full range of motion, no trauma Skin: Normal color, no trauma, abrasions Neuro: Intubated and sedated mechanical ventilation. Psychiatry: Intubated and sedated mechanical ventilation. Results Lab / Micro Data Result Diagrams: 06/04/21 18:35 06/04/21 18:35 Labs: Laboratory Results - last 24 hr 06/04/21 18:35: WBC 13.0 H, RBC 5.07, Hgb 16.4, Hct 53.0, MCV 104.5 H, MCH 32.3 H, MCHC 30.9 L, RDW Std Deviation 55.3 H, RDW Coeff of Salazar 14.3, Plt Count 182, MPV 9.6, Neut % (Auto) Not Reportable, Absolute Neuts (auto) 9.9 H, Absolute Lymphs (auto) 2.47, Total Counted 100, Neutrophils % (Manual) 75 H, Band Neutrophils % 1, Lymphocytes % (Manual) 19, Monocytes % (Manual) 2, Metamyelocytes % 1, Myelocytes % 2 H, Diff Path Review May foll, Platelet Estimate ADEQUATE, RBC Morphology NORM C+C 06/04/21 18:35: PT 18.2 H, INR 1.6, APTT 32.2 06/04/21 18:35: Sodium 133 L, Potassium 3.6, Chloride 89 L, Carbon Dioxide 26.0, Anion Gap 18 H, BUN 23 H, Creatinine 1.20, Estim Creat Clear Calc 84.43, Est GFR (MDRD) Af Amer 84, Est GFR (MDRD) Non-Af 69, BUN/Creatinine Ratio 19.2, Glucose 279 H, Calcium 8.3 L, Total Bilirubin 0.60, Direct Bilirubin 0.34 H, AST 246 H, ALT 262 H, Alkaline Phosphatase 198 H, Troponin I High Sens 11, Total Protein 7.3, Albumin 3.3, Globulin 4.0 06/04/21 18:35: Lactic Acid 11.2 H* 06/04/21 19:50: Urine Color Yellow, Urine Clarity Cloudy, Urine pH 6.5, Ur Specific [place] 1.015, Urine Protein 500 H, Urine Glucose (UA) 50 H, Urine Ketones 5 H, Urine Occult Blood 150 H, Urine Nitrite Negative, Urine Bilirubin Negative, Urine Urobilinogen 1 H, Ur Leukocyte Esterase 25 H ABG Data ABG results: ABG 06/04/21 19:07 Specimen Type ART Sample Site L Radial pH 7.00 L* Bicarbonate Actual 23.4 Total CO2 26 Base Excess -8 L O2 Saturation 86 L O2 % 100 ABG pCO2 95.2 H* ABG pO2 79 Gavino Test Positive Respiration Rate 18 O2 Delivery Device Adult Vent Vent Mode AC Tidal Volume 500 POC PEEP 12 Crit Call To/Read Back Yes Rhythm Strip Rhythm Strip: A-fib Rate: 91 Radiology Impression Chest X-Ray 06/04/21 18:36 IMPRESSION: 1. Widening of the superior mediastinum raises possibility of mediastinal process such as hematoma. Recommend correlating with CT, if clinically appropriate. 2. Hypoinflation with bilateral atelectasis. Electronically Signed: Will Tian MD ([place]) at 19:07 EDT , Service support , Assessment & Plan Assessment/Plan (1) Asystole: (2) Cardiopulmonary arrest: (3) Septic shock: PLAN: Cardiopulmonary arrest/septic shock Review of labs showed white count of 13,000. Heart rate of more than 90 on presentation. qSOFA 1 (encephalopathy) Lactic acid of 11.2. Discussed with your doctor to start patient on Unasyn. Because chest x-ray was interpreted as superior mediastinal widening discussed with ED doctor who ordered CTA chest. CTA chest showed multifocal pneumonia. Brain CT, chest x-ray and CTA chest was independently interpreted and agree radiologist interpretation. Placed on Igel by paramedics and transition to ET tube at the emergent department and placed on mechanical ventilation. ET tube mechanical ventilation continued. Continue Protonix. Placed on propofol and fentanyl drip at the emergency department and continued. Trend troponin. Will start patient on vancomycin and Zosyn. Patient is on home diuretics for CHF and is morbidly obese. Will order 30 mL/kg of ideal body weight of normal saline. We will get blood cultures x2. Continue home prednisone that was recently started. Elevated troponin High sensitive troponin initially was 11 but increased to 72 and then 123. Like secondary to CPR. Elevated liver enzymes Noted to have elevation in AST ALT and alkaline phosphatase. Like secondary septic shock. Trend CMP. Chronic A. fib Stable Cardizem, metoprolol and Xarelto continued DVT prophylaxis Xarelto for A. fib continued. Charges/Coding Visit Charges Inpatient E&M: 55182 Init Hosp L3
--- NOTE | 2021-06-04 20:40 | ED.RN ---
pt still in CT. Report called to ICU. They are getting the bariatric bed for patient. Pt is going to be transported from CT to ICU. Family notified and allowed to see patient again before departing to ICU. Unasyn antibiotic handed off to ICU due to needing a free IV in [facility]. Multiple staff members transport pt to ICU to help transfer patient.
[2021-06-04 21:21] LABS: Allen Test Positive; Base Excess -1 mmol/L (-2 to +2); Bicarbonate 29.2 mmol/L (22-26); Blood Gas Specimen Type ART; FI02 100; Mode AC; O2 Delivery Device Adult Vent; PEEP 12; PO2 71 mmHG (75-100); RR 18; SITE R Radial; SO2 84 % (95-99); Total Carbon Dioxide 32 mmol/L; Vt 550; pCO2 102.9 mmHg (35-45); pH 7.06 (7.35-7.45)
[2021-06-04] MEDS: Propofol 10MG/Ml 1,000 MG/100 ML Bottle 27 MG CONT INF (21:45)
[2021-06-04] MEDS: 0.9% Normal Saline 1,000 ML 50 ML IV (21:47)
--- NOTE | 2021-06-04 21:58 | CM.ED ---
Addendum entered by Mikaela Ohara 06/04/21 22:04: PARAS called ICU. Spoke to MARTIR Ritchie . Patient remains stable. PARAS called and updated patient's that patient is currently stable in the ICU. Emotional support provided. Mikaela SANDERSON Original Note: PARAS Note Late Entry SW spoke to family and advised if one family member visited, such as came could she be switched out with another family member and this conventional mortgage underwriter said no. Patient's inquired about if the hospital has her contact number and this conventional mortgage underwriter said yes and she inquired how as no one has asked me for it. PARAS confirmed her number [phone]. Patient's son got upset and said that his dad is going to and he can't visit with him. PARAS advised that family can visit with patient prior to going to the ICU. PARAS spoke to Paia and advised Paia that patient's sons wanted to visit prior to patient going to the ICU. Marline said that she would advise the RN. Plan: Emotional support provided. Mikaela SANDERSON
[2021-06-04] MEDS: Chlorhexidine 15 ML PO (22:02)
[2021-06-04] MEDS: Pramipexole Di-HCl 0.5 MG Tablet PO (22:02)
[2021-06-04] MEDS: dilTIAZem CD 180 MG Capsule PO (22:03)
[2021-06-04 22:25] LABS: Troponin-I HS 72 pg/mL (3.0-78.0)
[2021-06-04 22:44] LABS: Reflex Lactate? Y
[2021-06-04 23:40] LABS: Triglycerides 153 mg/dL
[2021-06-05] VITALS (38 sets, daily range): BP systolic 111–143; BP diastolic 71–109; PULSE 94–127; RESP 16–31; TEMP 36.1–38.9; O2SAT 89–99
[2021-06-05 00:04] LABS: Lactic Acid 5.1 mmol/L (0.4-1.9); Troponin-I HS 123 pg/mL (3.0-78.0)
[2021-06-05 00:16] LABS: CPK Total, Creatine Kinase 296 U/L (39-308)
[2021-06-05 01:11] LABS: Allen Test Positive; Base Excess 3 mmol/L (-2 to +2); Bicarbonate 28.8 mmol/L (22-26); Blood Gas Specimen Type ART; FI02 60; Mode AC; O2 Delivery Device Adult Vent; PEEP 14; PO2 69 mmHG (75-100); RR 20; SITE L Radial; SO2 92 % (95-99); Total Carbon Dioxide 31 mmol/L; Vt 550; pCO2 55.8 mmHg (35-45); pH 7.32 (7.35-7.45)
[2021-06-05] MEDS: Propofol 10MG/Ml 1,000 MG/100 ML Bottle 21.6 MG CONT INF (02:00)
--- NOTE | 2021-06-05 02:34 | SEPSIS_ITS ---
Sepsis Note Physical Exam/Vitals Objective: Chest X-Ray 06/04/21 18:36 IMPRESSION: 1. Widening of the superior mediastinum raises possibility of mediastinal process such as hematoma. Recommend correlating with CT, if clinically appropriate. 2. Hypoinflation with bilateral atelectasis. Electronically Signed: Will Tian MD ([place]) at 19:07 EDT , Service support , Brain CT 06/04/21 18:53 IMPRESSION: No acute intracranial hemorrhage or mass effect. Electronically Signed: Will Tian MD ([place]) at 19:58 EDT , Service support , Chest CTA 06/04/21 19:52 IMPRESSION: 1. No mediastinal mass or hematoma. 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 2. No central or segmental pulmonary embolism. 3. Multilobar dense airspace consolidation suggesting pneumonia. Electronically Signed: Will Tian MD ([place]) at 20:59 EDT , Service support , Temp Pulse Resp BP Pulse Ox 99 F 97 20 H 117/81 H 96 06/05/21 02:00 06/05/21 02:00 06/05/21 02:00 06/05/21 02:00 06/05/21 02:00 06/05/21 06/04/21 06/04/21 01:05 23:10 23:10 WBC RBC Hgb Hct MCV MCH MCHC RDW Std Deviation RDW Coeff of Salazar Plt Count MPV Neut % (Auto) Absolute Neuts (auto) Absolute Lymphs (auto) Total Counted Neutrophils % (Manual) Band Neutrophils % Lymphocytes % (Manual) Monocytes % (Manual) Metamyelocytes % Myelocytes % Diff Path Review Platelet Estimate RBC Morphology PT INR APTT Specimen Type ART Sample Site L Radial pH 7.32 L Bicarbonate Actual 28.8 H Total CO2 31 Base Excess 3 H O2 Saturation 92 L O2 % 60 ABG pCO2 55.8 H ABG pO2 69 L Gavino Test Positive Respiration Rate 20 O2 Delivery Device Adult Vent Vent Mode AC Tidal Volume 550 POC PEEP 14 Crit Call To/Read Back Blood Gas Notified Whom Sodium Potassium Chloride Carbon Dioxide Anion Gap BUN Creatinine Estim Creat Clear Calc Est GFR (MDRD) Af Amer Est GFR (MDRD) Non-Af BUN/Creatinine Ratio Glucose Lactic Acid 5.1 H* Calcium Total Bilirubin Direct Bilirubin AST ALT Alkaline Phosphatase Total Creatine Kinase Troponin I High Sens Total Protein Albumin Globulin Triglycerides 153 Urine Color Urine Clarity Urine pH Ur Specific [place] Urine Protein Urine Glucose (UA) Urine Ketones Urine Occult Blood Urine Nitrite Urine Bilirubin Urine Urobilinogen Ur Leukocyte Esterase Urine RBC Urine WBC Ur Squamous Epith Cells Urine Bacteria Urine Mucus 06/04/21 06/04/21 06/04/21 23:10 21:50 21:50 WBC RBC Hgb Hct MCV MCH MCHC RDW Std Deviation RDW Coeff of Salazar Plt Count MPV Neut % (Auto) Absolute Neuts (auto) Absolute Lymphs (auto) Total Counted Neutrophils % (Manual) Band Neutrophils % Lymphocytes % (Manual) Monocytes % (Manual) Metamyelocytes % Myelocytes % Diff Path Review Platelet Estimate RBC Morphology PT INR APTT Specimen Type Sample Site pH Bicarbonate Actual Total CO2 Base Excess O2 Saturation O2 % ABG pCO2 ABG pO2 Gavino Test Respiration Rate O2 Delivery Device Vent Mode Tidal Volume POC PEEP Crit Call To/Read Back Blood Gas Notified Whom Sodium Potassium Chloride Carbon Dioxide Anion Gap BUN Creatinine Estim Creat Clear Calc Est GFR (MDRD) Af Amer Est GFR (MDRD) Non-Af BUN/Creatinine Ratio Glucose Lactic Acid Calcium Total Bilirubin Direct Bilirubin AST ALT Alkaline Phosphatase Total Creatine Kinase 296 Troponin I High Sens 123 H* 72 Total Protein Albumin Globulin Triglycerides Urine Color Urine Clarity Urine pH Ur Specific [place] Urine Protein Urine Glucose (UA) Urine Ketones Urine Occult Blood Urine Nitrite Urine Bilirubin Urine Urobilinogen Ur Leukocyte Esterase Urine RBC Urine WBC Ur Squamous Epith Cells Urine Bacteria Urine Mucus 06/04/21 06/04/21 06/04/21 21:11 19:50 19:07 WBC RBC Hgb Hct MCV MCH MCHC RDW Std Deviation RDW Coeff of Salazar Plt Count MPV Neut % (Auto) Absolute Neuts (auto) Absolute Lymphs (auto) Total Counted Neutrophils % (Manual) Band Neutrophils % Lymphocytes % (Manual) Monocytes % (Manual) Metamyelocytes % Myelocytes % Diff Path Review Platelet Estimate RBC Morphology PT INR APTT Specimen Type ART ART Sample Site R Radial L Radial pH 7.06 L* 7.00 L* Bicarbonate Actual 29.2 H 23.4 Total CO2 32 26 Base Excess -1 -8 L O2 Saturation 84 L 86 L O2 % 100 100 ABG pCO2 102.9 H* 95.2 H* ABG pO2 71 L 79 Gavino Test Positive Positive Respiration Rate 18 18 O2 Delivery Device Adult Vent Adult Vent Vent Mode AC AC Tidal Volume 550 500 POC PEEP 12 12 Crit Call To/Read Back Yes Yes Blood Gas Notified Whom Dr Jalloh Sodium Potassium Chloride Carbon Dioxide Anion Gap BUN Creatinine Estim Creat Clear Calc Est GFR (MDRD) Af Amer Est GFR (MDRD) Non-Af BUN/Creatinine Ratio Glucose Lactic Acid Calcium Total Bilirubin Direct Bilirubin AST ALT Alkaline Phosphatase Total Creatine Kinase Troponin I High Sens Total Protein Albumin Globulin Triglycerides Urine Color Yellow Urine Clarity Cloudy Urine pH 6.5 Ur Specific [place] 1.015 Urine Protein 500 H Urine Glucose (UA) 50 H Urine Ketones 5 H Urine Occult Blood 150 H Urine Nitrite Negative Urine Bilirubin Negative Urine Urobilinogen 1 H Ur Leukocyte Esterase 25 H Urine RBC 10-25 SEEN Urine WBC 50-100 SEEN Ur Squamous Epith Cells 5-10 SEEN Urine Bacteria 0 SEEN Urine Mucus 2+ 06/04/21 06/04/21 06/04/21 18:35 18:35 18:35 WBC RBC Hgb Hct MCV MCH MCHC RDW Std Deviation RDW Coeff of Salazar Plt Count MPV Neut % (Auto) Absolute Neuts (auto) Absolute Lymphs (auto) Total Counted Neutrophils % (Manual) Band Neutrophils % Lymphocytes % (Manual) Monocytes % (Manual) Metamyelocytes % Myelocytes % Diff Path Review Platelet Estimate RBC Morphology PT 18.2 H INR 1.6 APTT 32.2 Specimen Type Sample Site pH Bicarbonate Actual Total CO2 Base Excess O2 Saturation O2 % ABG pCO2 ABG pO2 Gavino Test Respiration Rate O2 Delivery Device Vent Mode Tidal Volume POC PEEP Crit Call To/Read Back Blood Gas Notified Whom Sodium 133 L Potassium 3.6 Chloride 89 L Carbon Dioxide 26.0 Anion Gap 18 H BUN 23 H Creatinine 1.20 Estim Creat Clear Calc 84.43 Est GFR (MDRD) Af Amer 84 Est GFR (MDRD) Non-Af 69 BUN/Creatinine Ratio 19.2 Glucose 279 H Lactic Acid 11.2 H* Calcium 8.3 L Total Bilirubin 0.60 Direct Bilirubin 0.34 H AST 246 H ALT 262 H Alkaline Phosphatase 198 H Total Creatine Kinase Troponin I High Sens 11 Total Protein 7.3 Albumin 3.3 Globulin 4.0 Triglycerides Urine Color Urine Clarity Urine pH Ur Specific [place] Urine Protein Urine Glucose (UA) Urine Ketones Urine Occult Blood Urine Nitrite Urine Bilirubin Urine Urobilinogen Ur Leukocyte Esterase Urine RBC Urine WBC Ur Squamous Epith Cells Urine Bacteria Urine Mucus 06/04/21 18:35 WBC 13.0 H RBC 5.07 Hgb 16.4 Hct 53.0 MCV 104.5 H MCH 32.3 H MCHC 30.9 L RDW Std Deviation 55.3 H RDW Coeff of Salazar 14.3 Plt Count 182 MPV 9.6 Neut % (Auto) Not Reportable Absolute Neuts (auto) 9.9 H Absolute Lymphs (auto) 2.47 Total Counted 100 Neutrophils % (Manual) 75 H Band Neutrophils % 1 Lymphocytes % (Manual) 19 Monocytes % (Manual) 2 Metamyelocytes % 1 Myelocytes % 2 H Diff Path Review May foll Platelet Estimate ADEQUATE RBC Morphology NORM C+C PT INR APTT Specimen Type Sample Site pH Bicarbonate Actual Total CO2 Base Excess O2 Saturation O2 % ABG pCO2 ABG pO2 Gavino Test Respiration Rate O2 Delivery Device Vent Mode Tidal Volume POC PEEP Crit Call To/Read Back Blood Gas Notified Whom Sodium Potassium Chloride Carbon Dioxide Anion Gap BUN Creatinine Estim Creat Clear Calc Est GFR (MDRD) Af Amer Est GFR (MDRD) Non-Af BUN/Creatinine Ratio Glucose Lactic Acid Calcium Total Bilirubin Direct Bilirubin AST ALT Alkaline Phosphatase Total Creatine Kinase Troponin I High Sens Total Protein Albumin Globulin Triglycerides Urine Color Urine Clarity Urine pH Ur Specific [place] Urine Protein Urine Glucose (UA) Urine Ketones Urine Occult Blood Urine Nitrite Urine Bilirubin Urine Urobilinogen Ur Leukocyte Esterase Urine RBC Urine WBC Ur Squamous Epith Cells Urine Bacteria Urine Mucus Attestation Sepsis Attestation: Sepsis re-evaluation was performed
--- NOTE | 2021-06-05 03:23 | NURSING ---
EMERGENCY DOCUMENTATION Effective: 06/04/212039
[2021-06-05] MEDS: 0.9% Normal Saline 1,000 ML 999 ML IV ×3 (03:42→06:13)
[2021-06-05 04:05] LABS: Absolute Lymphocyte Count 0.87 X10^3/uL (0.83-4.51); Absolute Neutrophil Count 9.6 X10^3/uL (2.0-7.7); Basophil# 0.02 X10^3/uL; Basophil% 0.2 % (0-1); Hematocrit 44.8 % (40-54); Hemoglobin 14.7 g/dL (13.0-16.5); Lymphocyte # 0.87 X10^3/ul (0.83-4.51); Lymphocyte % 7.5 % (19-41); Mean Corp Hgb Conc 32.8 g/dL (32-36); Mean Corpuscular Hgb 32.2 pg (27.0-32.0); Mean Corpuscular Volume 98.2 fL (80-94); Mean Platelet Vol. 9.3 fl (6.2-12.0); Monocyte# 1.04 X10^3/uL; Monocyte% 8.9 % (0-10); NRBC Flagged by Analyzer 0 % (0-5); Neutrophil # 9.61 X10^3/uL (2.7-7.7); Neutrophil % 82.3 % (47-70); Platelet Count 150 K/mm3 (150-450); RBC Distribution Width CV 14.3 % (11.6-14.6); RBC Distribution Width SD 51.9 fl (35.1-43.9); Red Blood Count 4.56 M/mm3 (4.6-6.2); White Blood Count 11.7 K/mm3 (4.4-11.0)
--- NOTE | 2021-06-05 04:13 | PCM.RX.CS ---
Consult Pharmacy has been consulted to manage selected antiobiotic: Vancomycin Type of Consult: New start Suspected Infection: Sepsis Prior Doses of Antibiotics Received/Current Regimen: Medications Vancomycin HCl 2,000 mg/ (Sodium Chloride) 540 mls @ 250 mls/hr IV Q12H RADHA Vancomycin HCl 2,000 mg/ (Sodium Chloride) 540 mls @ 250 mls/hr IV X1 ONE Stop: 06/05/21 05:09 Last Admin: 06/05/21 03:46 Dose: 250 mls/hr Weight used for dosin kg Estimated Creatinine Clearance: 84 Goal Trough: 15-20 mcg/mL Pharmacy Plan for Drug Dosing: Pharmacy Service will continue to monitor and adjust dosing as required. Follow-Up Labs: Trough Vancomycin Labs to be done on [date and time ordered]: 06/06/21 @[id number]
--- NOTE | 2021-06-05 04:14 | NURSING ---
0414: Seizure like activity noted, patient desats to 61%, rapid response called, Erma Francois RN bags patient with 100% oxygen, patient sats up to 94%. at [address] Jalloh at bedside and aware of situation.
[2021-06-05] MEDS: LORazepam 2 MG/ML Syringe 4 MG IV ×4 (04:17→22:48)
[2021-06-05 04:28] LABS: ALB/GLOB Ratio 0.9 RATIO (0.9-2.4); AST(SGOT) 155 U/L (15-37); Alanine Aminotransfer ALT/SGPT 201 U/L (16-61); Albumin, Serum 2.7 g/dL (3.2-5.0); Alkaline Phosphatase 116 U/L (45-117); Anion Gap 11 (5-15); BUN 32 mg/dL (7-18); BUN/Creat Ratio 30.2 RATIO (10-20); Calcium,Total 7.5 mg/dL (8.5-10.1); Chloride 94 mmol/L (98-107); Creatinine, Serum 1.06 mg/dL (0.70-1.30); EST Glomerular Filtration Rate 80 mL/min (>60); Est Glom Filt Rate - Afr Amer 97 mL/min (>60); Estimated Creatinine Clearance 95.58 ml/min; Glucose 158 mg/dL (74-106); Potassium 3.7 mmol/L (3.5-5.1); Protein, Total 5.7 g/dL (6.4-8.2); Sodium Level 138 mmol/L (136-145)
[2021-06-05 04:34] LABS: Troponin-I HS 212 pg/mL (3.0-78.0)
--- NOTE | 2021-06-05 04:51 | PCM.PN.BLA ---
Progress Note Rapid response note: Nurse reported the patient desaturated seizure-like activity while on the vent. Patient's oxygen saturation increased while on the vent. Also patient with blood-tinged gastric secretion that has been going on all night. Escalate Protonix from once daily to q12 hours. CBC in a.m. Stop Xarelto. SCD ordered.
[2021-06-05] MEDS: Piperacil/Tazobactam 3.375 GM/50 ML ML IV ×3 (05:07→21:04)
[2021-06-05] MEDS: levETIRAcetam IV 1,000 MG/100 ML BAG 400 MG IV (05:07)
[2021-06-05] MEDS: Propofol 10MG/Ml 1,000 MG/100 ML Bottle 37.8 MG CONT INF (05:10)
--- NOTE | 2021-06-05 05:45 | CON.PCM.CC_ITS ---
Assessment & Plan Assessment/Plan (1) Cardiopulmonary arrest: PLAN: RECOMMENDATIONS: 1. Continue patient on assist control mode mechanical ventilation. Wean FiO2 and PEEP as tolerated. 2. Maintain seizure precautions. 3. Continue Keppra and as needed Ativan. 4. Continue empiric antimicrobials. Vancomycin can be discontinued from my perspective. 5. Obtain EEG today. 6. Continue appropriate GI prophylaxis. IMPRESSIONS: 1. Acute hypoxemic respiratory failure status post cardiac arrest The patient presented to the hospital after sustaining what was likely a primary respiratory arrest after he choked on food that he was eating. ACLS was initiated by responding EMS. However, there was a reasonable amount of downtime prior to return of spontaneous circulation. For now, the patient will be continued on invasive mechanical ventilatory support. FiO2 and PEEP will be weaned as tolerated. He is on appropriate antimicrobials over concerns for possible aspiration. 2. Encephalopathy Clinical concern for anoxic brain injury based upon presentation. The patient is currently demonstrating seizure-like activity, for which she was placed on Keppra and as needed Ativan. This regimen will be continued without change. The patient will be maintained on seizure precautions. EEG to be obtained tod ay. 3. History of asthma/obstructive sleep apnea As needed bronchodilator therapy can be initiated. 4. Mild shock liver Secondary to tissue hypoperfusion in the setting of cardiac arrest. Continue to monitor clinically. Anticipate further improvement with stabilization. 5. Lactic acidemia Secondary to hypoxemia related to the patient's acute respiratory arrest. 6. History of pulmonary hypertension/PE/atrial fibrillation/morbid obesity Complicates care, management, recovery and prognosis. Continue home medications for now as indicated. TIME: 38 minutes of critical care time, independent of procedures, was spent addressing the patient's acute hypoxemic respiratory failure status post cardiac arrest, encephalopathy, mild shock liver, lactic acidemia, review of all data and collaboration with the care team. HPI Consult Data Date of Consult: 06/06/21 HPI Narrative Reason for Consultation: Acute respiratory failure status post cardiac arrest HPI Narrative: The patient is a 46-year-old male, with a history as outlined below, who presented to the emergency department on June 04 via EMS after he became unresponsive while choking on food that he was eating for dinner. On EMS arrival, the patient was nonresponsive, pulseless and cyanotic. ACLS was initiated. The patient has a known history of severe pulmonary hypertension, PE, obstructive sleep apnea, atrial fibrillation, asthma and morbid obesity. The patient is currently followed in both the cardiology and pulmonary clinics on an outpatient basis. On presentation to the emergency department, the patient was noted to be afebrile and hemodynamically stable. Initial laboratory evaluation revealed a white blood cell count of 13,000. Chemistry profile was notable for a sodium of 133, chloride of 89 and creatinine of 1.20. Lactate was elevated to 11. AST and ALT were increased to 246 and 262, respectively. Urine analysis was unremarkable. On examination in the emergency department, he was noted to have a small amount of emesis in the posterior oropharynx. The patient was initially started on antimicrobials to cover for potential aspiration. Head CT was unremarkable. CTA chest showed no evidence for PE. Mediastinal lipomatosis was noted. Multilobar airspace consolidations were also identified. The patient was subsequently admitted to the medical intensive care unit for further management. Overnight, the patient did demonstrate signs of seizure activity, for which he was treated with Ativan and started on Keppra. [facility] Medical History Anxiety Asthma Bulging of cervical intervertebral disc Cervical spondylosis Chronic neck pain Claustrophobia Depression Fatty liver GERD (gastroesophageal reflux disease) Morbid obesity Obstructive sleep apnea Paroxysmal atrial fibrillation Primary hypogonadism in male Pulmonary embolism Sleep apnea Type 2 diabetes mellitus without complications Wears glasses Medical History unable to obtain Home Medications omeprazole 20 mg PO DAILY 09/28/14 [History Last Taken 12/27/20] bupropion HCl 150 mg tablet,12 hr sustained-release 150 mg PO DAILY 06/05/19 [History Last Taken 12/27/20] citalopram 20 mg tablet 20 mg PO DAILY 06/05/19 [History Last Taken 12/27/20] albuterol sulfate 1 - 2 puff INHALATION Q4H PRN PRN 06/15/19 [History Last Taken Unknown] rivaroxaban 20 mg tablet 20 mg PO DAILY tab 06/15/19 [History Last Taken 12/27/20] albuterol sulfate 2.5 mg INHALATION Q4H PRN ml 06/16/19 [History Last Taken Unknown] exenatide microspheres 2 mg subcutaneous extended release suspension 2 mg SC QWEEK 12/15/20 [History Last Taken Unknown] testosterone cypionate 200 mg/mL intramuscular oil 200 mg IM Q2W #1 ml 12/15/20 [History Last Taken Unknown] umeclidinium 62.5 mcg-vilanterol 25 mcg/actuation powdr for inhalation 1 inh INHALATION QDAY #60 ea 01/26/21 [Rx Last Taken Unknown] metolazone 2.5 mg tablet 2.5 mg PO DAILY 03/11/21 [History Last Taken Unknown] metoprolol succinate 25 mg tablet,extended release 24 hr 25 mg PO DAILY #90 tab 03/16/21 [Rx Last Taken Unknown] ropinirole 1 mg tablet 1 mg PO QHS #60 tab 05/10/21 [Rx Last Taken Unknown] alprazolam 2 mg tablet 2 mg PO QHS #10 tab 05/17/21 [Rx Last Taken Unknown] diltiazem HCl 180 mg capsule,extended release 24 hr 180 mg PO BID #180 cap 05/17/21 [Rx Last Taken Unknown] potassium chloride 20 mEq tablet,extended release 20 meq PO BID #60 tab 05/17/21 [Rx Last Taken Unknown] allopurinol 100 mg PO DAILY 06/04/21 [History Last Taken Unknown] furosemide 80 mg PO DAILY 06/04/21 [History Last Taken Unknown] levofloxacin 500 mg PO DAILY 06/04/21 [History Last Taken Unknown] prednisone 50 mg PO DAILY 06/04/21 [History Last Taken Unknown] Allergy/AdvReac Type Severity Reaction Status Date / Time morphine Allergy Severe Anaphylaxis Verified 05/17/21 12:59 Family History Other Hypertension Family History unable to obtain Surgical History History of cardioversion (12/27/20) History of herniorrhaphy Social History Smoking Status: Former smoker quit date: 08/06/00 pack-years: 11 Smokeless tobacco user: chewing tobacco how long ago did patient quit smokin alcohol intake: current alcohol intake frequency: 0-2 drinks per day substance use type: does not use caffeine: Yes Type: carbonated beverages Number of servings: 3 ROS Review of Systems ROS Unobtainable: due to endotracheal tube and due to mental condition Physical Exam Const Constitutional Narrative: The patient is currently comatose on the vent. General Appearance: intubated and patient mechanically ventilated Nutritional Appearance: morbidly obese HEENT normocephalic and head/scalp atraumatic Mouth: endotracheal tube in place and OG tube in place Eyes Pupil: sluggish and pinpoint Neck supple General: trachea midline Resp Resp Narrative: Occasional ventilator dyssynchrony noted. Effort and Inspection: tachypneic Auscultation: diminished lung sounds Cardio S1 normal heart sound and S2 normal heart sound Rate: tachycardic Rhythm: abnormal rhythm GI normal to inspection, nondistended, normoactive bowel sounds Extremity no clubbing, cyanosis or edema Skin no rashes or lesions noted Neuro Neuro Narrative: Occasional myoclonic jerking noted. The patient is comatose and nonresponsive to verbal and tactile stimulation. Lab / Micro Data Result Diagrams: 06/06/21 05:40 06/06/21 05:40 Labs: Laboratory Results - last 24 hr 06/04/21 18:35: WBC 13.0 H, RBC 5.07, Hgb 16.4, Hct 53.0, MCV 104.5 H, MCH 32.3 H, MCHC 30.9 L, RDW Std Deviation 55.3 H, RDW Coeff of Salazar 14.3, Plt Count 182, MPV 9.6, Neut % (Auto) Not Reportable, Absolute Neuts (auto) 9.9 H, Absolute Lymphs (auto) 2.47, Total Counted 100, Neutrophils % (Manual) 75 H, Band Neutrophils % 1, Lymphocytes % (Manual) 19, Monocytes % (Manual) 2, Metamyelocytes % 1, Myelocytes % 2 H, Diff Path Review May foll, Platelet Estimate ADEQUATE, RBC Morphology NORM C+C 06/04/21 18:35: PT 18.2 H, INR 1.6, APTT 32.2 06/04/21 18:35: Sodium 133 L, Potassium 3.6, Chloride 89 L, Carbon Dioxide 26.0, Anion Gap 18 H, BUN 23 H, Creatinine 1.20, Estim Creat Clear Calc 84.43, Est GFR (MDRD) Af Amer 84, Est GFR (MDRD) Non-Af 69, BUN/Creatinine Ratio 19.2, Glucose 279 H, Calcium 8.3 L, Total Bilirubin 0.60, Direct Bilirubin 0.34 H, AST 246 H, ALT 262 H, Alkaline Phosphatase 198 H, Troponin I High Sens 11, Total Protein 7.3, Albumin 3.3, Globulin 4.0 06/04/21 18:35: Lactic Acid 11.2 H* 06/04/21 19:50: Urine Color Yellow, Urine Clarity Cloudy, Urine pH 6.5, Ur Specific [place] 1.015, Urine Protein 500 H, Urine Glucose (UA) 50 H, Urine Ketones 5 H, Urine Occult Blood 150 H, Urine Nitrite Negative, Urine Bilirubin Negative, Urine Urobilinogen 1 H, Ur Leukocyte Esterase 25 H, Urine RBC 10-25 SEEN, Urine WBC 50-100 SEEN, Ur Squamous Epith Cells 5-10 SEEN, Urine Bacteria 0 SEEN, Urine Mucus 2+ 06/04/21 21:50: Troponin I High Sens 72 06/04/21 21:50: Total Creatine Kinase 296 06/04/21 23:10: Troponin I High Sens 123 H* 06/04/21 23:10: Triglycerides 153 06/04/21 23:10: Lactic Acid 5.1 H* 06/05/21 03:45: WBC 11.7 H, RBC 4.56 L, Hgb 14.7, Hct 44.8, MCV 98.2 H D, MCH 32.2 H, MCHC 32.8 D, RDW Std Deviation 51.9 H, RDW Coeff of Salazar 14.3, Plt Count 150, MPV 9.3, Immature Gran % (Auto) 1.100 H, Neut % (Auto) 82.3 H, Lymph % (Auto) 7.5 L, [place] % (Auto) 8.9, Eos % (Auto) 0.0, Baso % (Auto) 0.2, Absolute Neuts (auto) 9.6 H, Absolute Lymphs (auto) 0.87, Nucleated RBC % 0 06/05/21 03:45: Sodium 138, Potassium 3.7, Chloride 94 L, Carbon Dioxide 33.0 H, Anion Gap 11, BUN 32 H, Creatinine 1.06, Estim Creat Clear Calc 95.58, Est GFR (MDRD) Af Amer 97, Est GFR (MDRD) Non-Af 80, BUN/Creatinine Ratio 30.2 H, Glucose 158 H, Calcium 7.5 L, Total Bilirubin 0.70, AST 155 H, ALT 201 H, Alkaline Phosphatase 116, Total Protein 5.7 L, Albumin 2.7 L, Globulin 3.0, Albumin/Globulin Ratio 0.9 06/05/21 03:45: Troponin I High Sens 212 H* ABG Data ABG results: ABG 06/04/21 06/04/21 06/05/21 19:07 21:11 01:05 Specimen Type ART ART ART Sample Site L Radial R Radial L Radial pH 7.00 L* 7.06 L* 7.32 L Bicarbonate Actual 23.4 29.2 H 28.8 H Total CO2 26 32 31 Base Excess -8 L -1 3 H O2 Saturation 86 L 84 L 92 L O2 % 100 100 60 ABG pCO2 95.2 H* 102.9 H* 55.8 H ABG pO2 79 71 L 69 L Gavino Test Positive Positive Positive Respiration Rate 18 18 20 O2 Delivery Device Adult Vent Adult Vent Adult Vent Vent Mode AC AC AC Tidal Volume 500 550 550 POC PEEP 12 12 14 Crit Call To/Read Back Yes Yes Blood Gas Notified Whom Dr Jalloh Rhythm Strip Rhythm Strip: A-fib Rate: 91 Radiology Impression Chest X-Ray 06/04/21 18:36 IMPRESSION: 1. Widening of the superior mediastinum raises possibility of mediastinal process such as hematoma. Recommend correlating with CT, if clinically appropriate. 2. Hypoinflation with bilateral atelectasis. Electronically Signed: Will Tian MD ([place]) at 19:07 EDT , Service support , Brain CT 06/04/21 18:53 IMPRESSION: No acute intracranial hemorrhage or mass effect. Electronically Signed: Will Tian MD ([place]) at 19:58 EDT , Service support , Chest CTA 06/04/21 19:52 IMPRESSION: 1. No mediastinal mass or hematoma. 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 2. No central or segmental pulmonary embolism. 3. Multilobar dense airspace consolidation suggesting pneumonia. Electronically Signed: Will Tian MD ([place]) at 20:59 EDT , Service support , Charges/Coding Procedures [id number]
[2021-06-05] MEDS: Propofol 10MG/Ml 1,000 MG/100 ML Bottle 43.2 MG CONT INF ×6 (07:43→19:09)
[2021-06-05] MEDS: Acetaminophen 650 MG/20 ML UDC GT ×3 (09:03→21:30)
[2021-06-05] MEDS: Metoprolol(XL)Succ 25 MG Tablet PO (09:08)
[2021-06-05] MEDS: predniSONE 10 MG Tablet 50 MG PO (09:08)
[2021-06-05] MEDS: Allopurinol 100 MG Tablet PO (09:08)
[2021-06-05] MEDS: dilTIAZem CD 180 MG Capsule PO ×2 (09:08→21:04)
[2021-06-05] MEDS: Citalopram 20 MG Tablet PO (09:08)
[2021-06-05] MEDS: CHLORHEXIDINE GLUC 2% CLOTH 1 EACH TOWELETTE TOPICAL (09:09)
[2021-06-05] MEDS: Chlorhexidine 15 ML PO ×2 (09:09→21:04)
--- NOTE | 2021-06-05 11:06 | TELEMED_ITS ---
[facility] Tele[facility] has confirmed receipt of a request for visit. This document confirms receipt of the order initiating the consult. To find the results of the consultation, please view the patient's reports for the scanned Telemed Consult.
--- NOTE | 2021-06-05 13:13 | PCM.PN.HOSP ---
Subjective Subjective Patient was seen and examined today, he is currently on the ventilator, he has an upward gaze on both of his eyes. Patient twitches his eyelids at times, he does not respond to pain. EEG is being done currently. Objective Data Objective Data Vital Signs: Vital Signs Temp Pulse Resp BP Pulse Ox 100.9 F H 122 H 23 H 130/94 H 98 06/05/21 12:00 06/05/21 12:00 06/05/21 12:00 06/05/21 12:00 06/05/21 12:00 Oxygen Flow Rate (L/min) 100 Oxygen Delivery Method Mechanical Ventilator Weight: 175.3 kg Body Mass Index (BMI) 52.4 Intake & Output: Intake and Output for Last 24 Hours 06/03/21 06/04/21 06/05/21 23:59 23:59 23:59 Intake Total 351.42 / 398.02 4224.71 / 4224.71 Output Total 2250 / 2250 Balance 351.42 / 398.02 1974.71 / 1974.71 Lab / Micro Data Result Diagrams: 06/05/21 03:45 06/05/21 03:45 Labs: Laboratory Results - last 24 hr 06/04/21 18:35: WBC 13.0 H, RBC 5.07, Hgb 16.4, Hct 53.0, MCV 104.5 H, MCH 32.3 H, MCHC 30.9 L, RDW Std Deviation 55.3 H, RDW Coeff of Salazar 14.3, Plt Count 182, MPV 9.6, Neut % (Auto) Not Reportable, Absolute Neuts (auto) 9.9 H, Absolute Lymphs (auto) 2.47, Total Counted 100, Neutrophils % (Manual) 75 H, Band Neutrophils % 1, Lymphocytes % (Manual) 19, Monocytes % (Manual) 2, Metamyelocytes % 1, Myelocytes % 2 H, Diff Path Review May foll, Platelet Estimate ADEQUATE, RBC Morphology NORM C+C 06/04/21 18:35: PT 18.2 H, INR 1.6, APTT 32.2 06/04/21 18:35: Sodium 133 L, Potassium 3.6, Chloride 89 L, Carbon Dioxide 26.0, Anion Gap 18 H, BUN 23 H, Creatinine 1.20, Estim Creat Clear Calc 84.43, Est GFR (MDRD) Af Amer 84, Est GFR (MDRD) Non-Af 69, BUN/Creatinine Ratio 19.2, Glucose 279 H, Calcium 8.3 L, Total Bilirubin 0.60, Direct Bilirubin 0.34 H, AST 246 H, ALT 262 H, Alkaline Phosphatase 198 H, Troponin I High Sens 11, Total Protein 7.3, Albumin 3.3, Globulin 4.0 06/04/21 18:35: Lactic Acid 11.2 H* 06/04/21 19:50: Urine Color Yellow, Urine Clarity Cloudy, Urine pH 6.5, Ur Specific [place] 1.015, Urine Protein 500 H, Urine Glucose (UA) 50 H, Urine Ketones 5 H, Urine Occult Blood 150 H, Urine Nitrite Negative, Urine Bilirubin Negative, Urine Urobilinogen 1 H, Ur Leukocyte Esterase 25 H, Urine RBC 10-25 SEEN, Urine WBC 50-100 SEEN, Ur Squamous Epith Cells 5-10 SEEN, Urine Bacteria 0 SEEN, Urine Mucus 2+ 06/04/21 21:50: Troponin I High Sens 72 06/04/21 21:50: Total Creatine Kinase 296 06/04/21 23:10: Troponin I High Sens 123 H* 06/04/21 23:10: Triglycerides 153 06/04/21 23:10: Lactic Acid 5.1 H* 06/05/21 03:45: WBC 11.7 H, RBC 4.56 L, Hgb 14.7, Hct 44.8, MCV 98.2 H D, MCH 32.2 H, MCHC 32.8 D, RDW Std Deviation 51.9 H, RDW Coeff of Salazar 14.3, Plt Count 150, MPV 9.3, Immature Gran % (Auto) 1.100 H, Neut % (Auto) 82.3 H, Lymph % (Auto) 7.5 L, [place] % (Auto) 8.9, Eos % (Auto) 0.0, Baso % (Auto) 0.2, Absolute Neuts (auto) 9.6 H, Absolute Lymphs (auto) 0.87, Nucleated RBC % 0 06/05/21 03:45: Sodium 138, Potassium 3.7, Chloride 94 L, Carbon Dioxide 33.0 H, Anion Gap 11, BUN 32 H, Creatinine 1.06, Estim Creat Clear Calc 95.58, Est GFR (MDRD) Af Amer 97, Est GFR (MDRD) Non-Af 80, BUN/Creatinine Ratio 30.2 H, Glucose 158 H, Calcium 7.5 L, Total Bilirubin 0.70, AST 155 H, ALT 201 H, Alkaline Phosphatase 116, Total Protein 5.7 L, Albumin 2.7 L, Globulin 3.0, Albumin/Globulin Ratio 0.9 06/05/21 03:45: Troponin I High Sens 212 H* Micro: Microbiology 06/04/21 21:44 Sputum, Tracheal Aspirate Gram Stain - Final 06/05/21 05:23 Gastric Fluid/Contents Gastric Occult Blood - Final Occult Blood Positive ABG Data ABG results: ABG 06/04/21 06/04/21 06/05/21 19:07 21:11 01:05 Specimen Type ART ART ART Sample Site L Radial R Radial L Radial pH 7.00 L* 7.06 L* 7.32 L Bicarbonate Actual 23.4 29.2 H 28.8 H Total CO2 26 32 31 Base Excess -8 L -1 3 H O2 Saturation 86 L 84 L 92 L O2 % 100 100 60 ABG pCO2 95.2 H* 102.9 H* 55.8 H ABG pO2 79 71 L 69 L Gavino Test Positive Positive Positive Respiration Rate 18 18 20 O2 Delivery Device Adult Vent Adult Vent Adult Vent Vent Mode AC AC AC Tidal Volume 500 550 550 POC PEEP 12 12 14 Crit Call To/Read Back Yes Yes Blood Gas Notified Whom Dr Jalloh Radiography Diagnostic Testing: Radiology Impression Chest X-Ray 06/04/21 18:36 IMPRESSION: 1. Widening of the superior mediastinum raises possibility of mediastinal process such as hematoma. Recommend correlating with CT, if clinically appropriate. 2. Hypoinflation with bilateral atelectasis. Electronically Signed: Will Tian MD ([place]) at 19:07 EDT , Service support , Brain CT 06/04/21 18:53 IMPRESSION: No acute intracranial hemorrhage or mass effect. Electronically Signed: Will Tian MD ([place]) at 19:58 EDT , Service support , Chest CTA 06/04/21 19:52 IMPRESSION: 1. No mediastinal mass or hematoma. 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 2. No central or segmental pulmonary embolism. 3. Multilobar dense airspace consolidation suggesting pneumonia. Electronically Signed: Will Tian MD ([place]) at 20:59 EDT , Service support , Rhythm Strip Rhythm Strip: A-fib Rate: 91 Physical Exam Const alert Constitutional Narrative: Patient is comatose and on the ventilator General Appearance: cooperative, well kempt and well developed Orientation / Consciousness: awake, oriented to person, oriented to place and oriented to time HEENT normocephalic and moist oral mucous membranes Head and Scalp: normocephalic Eyes Eyes Narrative: There is an upward gaze noted on both eyes Neck nuchal rigidity, no JVD and thyroid normal General: trachea midline Resp normal respiratory effort, no retractions, no use of accessory muscles and clear to auscultation bilaterally Auscultation: Negative for rales, rhonchi or wheezes Cardio S1 normal heart sound, S2 normal heart sound, no murmurs, no rub and no gallops Cardio Narrative: Heart rate and rhythm is irregular GI normal to inspection, nondistended, normoactive bowel sounds, soft to palpation and non-distended GI Narrative: Patient is morbidly obese Extremity normal to inspection and no clubbing, cyanosis or edema Skin no rashes or lesions noted General Skin Exam: no breakdown Neuro Neuro Narrative: Patient is comatose on the ventilator Psych thought process normal Psych Narrative: Patient is comatose and on the ventilator Assessment & Plan Assessment/Plan (1) Cardiopulmonary arrest: PLAN: 1. Acute hypoxic respiratory failure due to respiratory arrest leading to cardiopulmonary arrest-patient is getting an EEG done today, he will be supported on the ventilator, critical care medicine is seeing patient #2 encephalopathy-probably secondary to anoxic brain injury, EEG will be obtained today #3 possible seizure disorder-patient is currently on Keppra and as needed Ativan #4 obstructive sleep apnea #5 morbid obesity #6 elevated liver enzymes-probably secondary to cardiopulmonary arrest-labs will be monitored #7 lactic acidosis-secondary to cardiopulmonary arrest #8 chronic atrial fibrillation-patient will remain on his Xarelto which she takes at home, he also has a history of PE according to the medical record. Charges/Coding Visit Charges Inpatient E&M: 35299 Subs Hosp L2
--- NOTE | 2021-06-05 13:35 | RAD_ITS ---
STUDY: X-RAY CHEST REASON FOR EXAM: Male, 46 years old. Line placement TECHNIQUE: Frontal view of the chest COMPARISON: 06/04/21 FINDINGS: There is a right-sided PICC line with its tip in the superior vena cava. There is an endotracheal tube with its tip approximately 4 cm above the [place]. There is an enteric tube noted with its tip in the stomach. There is atelectasis at the lung bases. The lungs are otherwise clear. There are no pleural effusions. There is no pneumothorax. The heart is stable in size. The visualized osseous structures are within normal limits. RAD/Chest 1 View (Portable) IMPRESSION: Satisfactory position of the support lines and tubes. No pneumothorax. Bibasilar atelectasis. No pulmonary infiltrate Electronically Signed: Sim Leon MD at 14:51 EDT Tel , Service support ,
[2021-06-05] MEDS: Rivaroxaban 20 MG Tablet GT (16:11)
--- NOTE | 2021-06-05 17:55 | NURSING ---
gold colored band ring given to she took it home with her
[2021-06-05] MEDS: Pramipexole Di-HCl 0.5 MG Tablet PO (21:04)
[2021-06-05] MEDS: Propofol 10MG/Ml 1,000 MG/100 ML Bottle 27 MG CONT INF (21:29)
[2021-06-06] VITALS (31 sets, daily range): BP systolic 122–171; BP diastolic 81–115; PULSE 67–118; RESP 16–20; TEMP 38.6–39.4; O2SAT 87–99
--- NOTE | 2021-06-06 00:05 | NURSING ---
During bed change and bath patient desats to 12% when being turned, patient turns purple. patient placed on back and bagged, Skyler RT at bedside and Timur RN/Erma RN at bedside. After approximately 3 minutes patient sats in 90's with color of skin returning to normal, Skyler RT suctions ET tube. Will continue to monitor.
[2021-06-06] MEDS: Propofol 10MG/Ml 1,000 MG/100 ML Bottle 32.4 MG CONT INF (00:38)
[2021-06-06] MEDS: Propofol 10MG/Ml 1,000 MG/100 ML Bottle 21.6 MG CONT INF ×5 (04:23→22:04)
[2021-06-06] MEDS: Piperacil/Tazobactam 3.375 GM/50 ML ML IV ×3 (04:24→19:53)
[2021-06-06 05:48] LABS: Absolute Lymphocyte Count 0.68 X10^3/uL (0.83-4.51); Absolute Neutrophil Count 8.8 X10^3/uL (2.0-7.7); Basophil# 0.02 X10^3/uL; Basophil% 0.2 % (0-1); Hematocrit 42.3 % (40-54); Lymphocyte # 0.68 X10^3/ul (0.83-4.51); Lymphocyte % 6.6 % (19-41); Mean Corp Hgb Conc 33.1 g/dL (32-36); Mean Corpuscular Hgb 32.3 pg (27.0-32.0); Mean Corpuscular Volume 97.5 fL (80-94); Mean Platelet Vol. 9.4 fl (6.2-12.0); Monocyte# 0.82 X10^3/uL; Monocyte% 7.9 % (0-10); NRBC Flagged by Analyzer 0 % (0-5); Neutrophil # 8.75 X10^3/uL (2.7-7.7); Neutrophil % 84.7 % (47-70); Platelet Count 113 K/mm3 (150-450); RBC Distribution Width CV 14.8 % (11.6-14.6); RBC Distribution Width SD 53.8 fl (35.1-43.9); Red Blood Count 4.34 M/mm3 (4.6-6.2); White Blood Count 10.3 K/mm3 (4.4-11.0)
[2021-06-06 06:06] LABS: ALB/GLOB Ratio 0.8 RATIO (0.9-2.4); AST(SGOT) 86 U/L (15-37); Alanine Aminotransfer ALT/SGPT 142 U/L (16-61); Albumin, Serum 2.7 g/dL (3.2-5.0); Alkaline Phosphatase 95 U/L (45-117); Anion Gap 6 (5-15); BUN 21 mg/dL (7-18); BUN/Creat Ratio 22.8 RATIO (10-20); Calcium,Total 7.2 mg/dL (8.5-10.1); Chloride 94 mmol/L (98-107); Creatinine, Serum 0.92 mg/dL (0.70-1.30); EST Glomerular Filtration Rate 94 mL/min (>60); Est Glom Filt Rate - Afr Amer 114 mL/min (>60); Estimated Creatinine Clearance 110.12 ml/min; Globulin 3.4 g/dL (2.2-4.2); Glucose 186 mg/dL (74-106); Potassium 3.2 mmol/L (3.5-5.1); Protein, Total 6.1 g/dL (6.4-8.2); Sodium Level 136 mmol/L (136-145)
--- NOTE | 2021-06-06 07:03 | PN.CC_ITS ---
Assessment & Plan Assessment/Plan (1) Cardiopulmonary arrest: PLAN: RECOMMENDATIONS: 1. Continue patient on assist control mode mechanical ventilation. Wean FiO2 and PEEP as tolerated. 2. Maintain seizure precautions. 3. Continue Keppra and as needed Ativan. 4. Continue empiric antimicrobials. 5. Continue appropriate GI prophylaxis. 6. Ongoing goals of care discussions with the patient's family. IMPRESSIONS: 1. Acute hypoxemic respiratory failure status post cardiac arrest The patient presented to the hospital after sustaining what was likely a primary respiratory arrest after he choked on food that he was eating. ACLS was initiated by responding EMS. However, there was a reasonable amount of downtime prior to return of spontaneous circulation. For now, the patient will be continued on invasive mechanical ventilatory support. FiO2 and PEEP will be weaned as tolerated. He is on appropriate antimicrobials over concerns for possible aspiration. 2. Encephalopathy Clinical concern for anoxic brain injury based upon presentation. EEG revealed a burst suppression pattern. The patient is currently demonstrating focal seizure-like activity, for which she was placed on Keppra and as needed Ativan. This regimen will be continued without change. The patient will be maintained on seizure precautions. Prognosis is overall quite poor. 3. History of asthma/obstructive sleep apnea As needed bronchodilator therapy can be initiated. 4. Mild shock liver Improving. Secondary to tissue hypoperfusion in the setting of cardiac arrest. Continue to monitor clinically. 5. History of pulmonary hypertension/PE/atrial fibrillation/morbid obesity Complicates care, management, recovery and prognosis. Continue home medications for now as indicated. TIME: 38 minutes of critical care time, independent of procedures, was spent addressing the patient's acute hypoxemic respiratory failure status post cardiac arrest, encephalopathy, mild shock liver, review of all data and collaboration with the care team. Subjective Subjective The patient was seen and examined at the bedside this morning. Events from the last 24 hours have been reviewed. The patient remains febrile with a temperature this morning of 102.1 ?F. Overnight, the patient readily desaturated while he was being turned in bed. With supportive care, his oxygenation status slowly improved. He remains on assist control mode mechanical ventilation with an FiO2 requirement of 40% and PEEP of 10. The patient remains on propofol. He remains neurologically unchanged from previous. Potassium is low this morning at 3.2 with a bicarbonate of 36. I did meet personally with the patient's this morning at the bedside and updated her on the results of the EEG and the patient's overall clinical state. I explained that the patient's prognosis, in general, is quite poor. She is going to discuss goals of care amongst the family. Objective Data Objective Data The patient's most recent lab work, culture data and imaging studies have all been personally reviewed. Blood and sputum cultures are pending. Vital Signs: Vital Signs Temp Pulse Resp BP Pulse Ox 102.1 F H 103 H 16 171/113 H 94 06/06/21 06:00 06/06/21 06:52 06/06/21 06:52 06/06/21 06:00 06/06/21 06:52 Oxygen Flow Rate (L/min) 100 Oxygen Delivery Method Mechanical Ventilator Weight: 177.5 kg Body Mass Index (BMI) 52.4 Intake & Output: Intake and Output for Last 24 Hours 06/04/21 06/05/21 06/06/21 23:59 23:59 23:59 Intake Total 351.42 / 398.02 5033.53 / 5041.03 281.41 / 281.41 Output Total 4550 / 4550 1200 / 1200 Balance 351.42 / 398.02 483.53 / 491.03 -918.59 / -918.59 Lab / Micro Data Attestation: I reviewed the patient's lab results. Result Diagrams: 06/06/21 05:40 06/06/21 05:40 Labs: Laboratory Results - last 24 hr 06/06/21 05:40: WBC 10.3, RBC 4.34 L, Hgb 14.0, Hct 42.3, MCV 97.5 H, MCH 32.3 H , MCHC 33.1, RDW Std Deviation 53.8 H, RDW Coeff of Salazar 14.8 H, Plt Count 113 L, MPV 9.4, Immature Gran % (Auto) 0.600, Neut % (Auto) 84.7 H, Lymph % (Auto) 6.6 L, [place] % (Auto) 7.9, Eos % (Auto) 0.0, Baso % (Auto) 0.2, Absolute Neuts (auto) 8.8 H, Absolute Lymphs (auto) 0.68 L, Nucleated RBC % 0 06/06/21 05:40: Sodium 136, Potassium 3.2 L, Chloride 94 L, Carbon Dioxide 36.0 H, Anion Gap 6, BUN 21 H, Creatinine 0.92, Estim Creat Clear Calc 110.12, Est GFR (MDRD) Af Amer 114, Est GFR (MDRD) Non-Af 94, BUN/Creatinine Ratio 22.8 H, Glucose 186 H, Calcium 7.2 L, Total Bilirubin 1.50 H, AST 86 H, ALT 142 H, Alk shad Phosphatase 95, Total Protein 6.1 L, Albumin 2.7 L, Globulin 3.4, Albumin/Globulin Ratio 0.8 L Micro: Microbiology 06/04/21 21:44 Sputum, Tracheal Aspirate Gram Stain - Final 06/05/21 05:23 Gastric Fluid/Contents Gastric Occult Blood - Final Occult Blood Positive Radiography Diagnostic Testing: Radiology Impression Chest X-Ray 06/05/21 13:35 IMPRESSION: Satisfactory position of the support lines and tubes. No pneumothorax. Bibasilar atelectasis. No pulmonary infiltrate Electronically Signed: Sim Leon MD at 14:51 EDT Tel , Service support , Rhythm Strip Rhythm Strip: A-fib Rate: 91 Physical Exam Const Constitutional Narrative: The patient is currently comatose on the vent. General Appearance: intubated and patient mechanically ventilated Nutritional Appearance: morbidly obese HEENT normocephalic and head/scalp atraumatic Mouth: endotracheal tube in place and OG tube in place Eyes Pupil: sluggish and pinpoint Neck supple General: trachea midline Resp Auscultation: diminished lung sounds; Negative for rales, rhonchi or wheezes Cardio S1 normal heart sound and S2 normal heart sound Rate: tachycardic Rhythm: abnormal rhythm GI normal to inspection, nondistended, normoactive bowel sounds Extremity no clubbing, cyanosis or edema Skin no rashes or lesions noted Neuro Neuro Narrative: Occasional myoclonic jerking noted. The patient is comatose and nonresponsive to verbal and tactile stimulation. Charges/Coding Procedures Hospitalists Procedures: [id number] [facility] 1st Hr
[2021-06-06] MEDS: Potassium Chloride 10mEq/100mL 10 MEQ/100 ML IV.SOLN. 100 MEQ IV BOLUS ×4 (07:52→11:07)
[2021-06-06] MEDS: Acetaminophen 650 MG/20 ML UDC GT ×3 (07:53→19:52)
[2021-06-06] MEDS: predniSONE 10 MG Tablet 50 MG PO (07:53)
[2021-06-06] MEDS: dilTIAZem CD 180 MG Capsule PO ×2 (07:54→19:52)
[2021-06-06] MEDS: Chlorhexidine 15 ML PO ×2 (07:54→19:52)
[2021-06-06] MEDS: Metoprolol(XL)Succ 25 MG Tablet PO (07:55)
[2021-06-06] MEDS: CHLORHEXIDINE GLUC 2% CLOTH 1 EACH TOWELETTE TOPICAL (09:38)
--- NOTE | 2021-06-06 10:56 | PN.HOSP_ITS ---
Subjective Subjective Patient seen and examined. He remains intubated and sedated. Patient is tachycardic and is also febrile with temperature of 102.2 Fahrenheit today. Unable to do review of systems as he is intubated and sedated. Objective Data Objective Data Vital Signs: Vital Signs Temp Pulse Resp BP Pulse Ox 102.2 F H 105 H 16 165/110 H 87 06/06/21 09:00 06/06/21 09:00 06/06/21 09:00 06/06/21 09:00 06/06/21 09:00 Oxygen Flow Rate (L/min) 100 Oxygen Delivery Method Mechanical Ventilator Weight: 391 lb 5.128 oz Body Mass Index (BMI) 52.4 Intake & Output: Intake and Output for Last 24 Hours 06/04/21 06/05/21 06/06/21 23:59 23:59 23:59 Intake Total 351.42 / 398.02 5033.53 / 5041.03 811.14 / 811.14 Output Total 4550 / 4550 1300 / 1300 Balance 351.42 / 398.02 483.53 / 491.03 -488.86 / -488.86 Lab / Micro Data Result Diagrams: 06/06/21 05:40 06/06/21 05:40 Labs: Laboratory Results - last 24 hr 06/06/21 05:40: WBC 10.3, RBC 4.34 L, Hgb 14.0, Hct 42.3, MCV 97.5 H, MCH 32.3 H , MCHC 33.1, RDW Std Deviation 53.8 H, RDW Coeff of Salazar 14.8 H, Plt Count 113 L, MPV 9.4, Immature Gran % (Auto) 0.600, Neut % (Auto) 84.7 H, Lymph % (Auto) 6.6 L, [place] % (Auto) 7.9, Eos % (Auto) 0.0, Baso % (Auto) 0.2, Absolute Neuts (auto) 8.8 H, Absolute Lymphs (auto) 0.68 L, Nucleated RBC % 0 06/06/21 05:40: Sodium 136, Potassium 3.2 L, Chloride 94 L, Carbon Dioxide 36.0 H, Anion Gap 6, BUN 21 H, Creatinine 0.92, Estim Creat Clear Calc 110.12, Est GFR (MDRD) Af Amer 114, Est GFR (MDRD) Non-Af 94, BUN/Creatinine Ratio 22.8 H, Glucose 186 H, Calcium 7.2 L, Total Bilirubin 1.50 H, AST 86 H, ALT 142 H, Alkaline Phosphatase 95, Total Protein 6.1 L, Albumin 2.7 L, Globulin 3.4, Albumin/Globulin Ratio 0.8 L Micro: Microbiology 06/04/21 21:44 Sputum, Tracheal Aspirate Gram Stain - Final 06/04/21 21:44 Sputum, Tracheal Aspirate Respiratory Culture - Preliminary Appears to be normal respiratory steven. Further studies to follow. 06/05/21 05:23 Gastric Fluid/Contents Gastric Occult Blood - Final Occult Blood Positive Radiography Diagnostic Testing: Radiology Impression Chest X-Ray 06/05/21 13:35 IMPRESSION: Satisfactory position of the support lines and tubes. No pneumothorax. Bibasilar atelectasis. No pulmonary infiltrate Electronically Signed: Sim Leon MD at 14:51 EDT Tel , Service support , Rhythm Strip Rhythm Strip: A-fib Rate: 91 Physical Exam Const Constitutional Narrative: intubated, sedated, RASS score is -1 Exam Limitations: altered mental status HEENT head/scalp atraumatic and moist oral mucous membranes Head and Scalp: normocephalic Eyes PERRL, EOMs intact bilaterally and conjunctivae normal Neck no lymphadenopathy Resp Resp Narrative: intubated, sedated. Cardio Cardio Narrative: tachycardic, normal S1 and S2, no murmurs GI normal to inspection, nondistended, normoactive bowel sounds, soft to palpation, non-tender and non-distended GI Narrative: obese Extremity normal to inspection Peripheral Pulses: Yes pulses 2+ throughout Skin no rashes or lesions noted Neuro Neuro Narrative: intubated, sedated, RASS score is -4 Assessment & Plan Assessment/Plan (1) Septic shock: (2) Cardiopulmonary arrest: (3) Asystole: (4) Respiratory failure: PLAN: #Acute hypoxic respiratory failure due to acute cardiopulmonary arrest * it is though that he choked on food, leading to his respiratory arrest * currently intubated and sedated * critical care on board * titrate oxygen to maintain sats >90% #Acute metabolic encephalopathy * on keppra and ativan prn due to seizure like activity * concerning for anoxic brain injury, in light of his respiratory arrest * EEG showed burst suppression pattern indicating a severe, diffuse encep halopathy * seizure precautions * #Sepsis due to probable aspiration pneumonia * Patient is febrile with temperature of 1-2.2 Fahrenheit and is also tachycardic. * On Zosyn and vancomycin. Could possibly be due to an aspiration pneumonia * Blood cultures pending * #TELMA and asthma: on breathing treatments with bronchodilators #Hypokalemia: Potassium is 3.2 today. Replace and trend. #Super morbid obesity #A. fib: On Xarelto and Cardizem. DVT prophylaxis: on eliquis Code status: full code. Prognosis: poor. counseled by critical care team; she is to decide about code status and goals of care with family Charges/Coding Visit Charges Inpatient E&M: 48137 Subs Hosp L3
--- NOTE | 2021-06-06 12:13 | NURSING ---
[facility] Maryellen [phone] called in for update on status she will be here this afternoon to speak with family
[2021-06-06 12:48] LABS: Pathologist Review Reviewed
--- NOTE | 2021-06-06 13:36 | CHAPLAIN ---
Type of Pastoral Visit _x__ Initial Visit ___ Follow-up Visit ___ On-call Visit ___ General Patient Visit ___ Spiritual Assessment ___ Family Conference ___ Bereavement ___ Rapid Response ___ Code Blue ___ Other (describe below) Pastoral Care Referral From ___ Patient _x__ Family ___ Nurse ___ Physician ___ Lokie Driver ___ Manager Urology ___ Other (describe below) Sacrament/Intervention _x__ Active listening ___ Anointing ___ Presybeterian ___ Bereavement ___ Communion ___ Jenn exploration ___ ___ Life review _x__ Prayer ___ Reconciliation ___ Sacrament of Sick _x__ Supportive presence ___ Wedding ___ Other (describe below) Pastoral Comments met with spouse and two adult sons of the patient; decision to be made later today about extubation; spouse indicates that their transfer operator will come tomorrow for end of life support; family receptive of prayer and presence; offer of ongoing support given as needed or desired
--- NOTE | 2021-06-06 13:52 | CASEMGMT ---
Patient is currently on vent and unable to participate in assessment. CM will continue to follow this patient and will attempt again at later time.
--- NOTE | 2021-06-06 16:14 | CASEMGMT ---
SW spoke w/ at the bedside, offered support. states they have a good support system so that is helping. states they have four children, two are older, one is 10 and one is 11. SW explained to is here and remains available for support to her and to family as needed. NEETU Bello
[2021-06-06 16:31] LABS: Vancomycin, Trough Level 1.1 ug/mL (5.0-15.0)
[2021-06-06] MEDS: Rivaroxaban 20 MG Tablet GT (17:25)
[2021-06-06] MEDS: Pramipexole Di-HCl 0.5 MG Tablet PO (19:52)
[2021-06-07] VITALS (28 sets, daily range): BP systolic 120–169; BP diastolic 71–111; PULSE 16–105; RESP 16; TEMP 36.2–38.7; O2SAT 60–98
[2021-06-07] MEDS: Propofol 10MG/Ml 1,000 MG/100 ML Bottle 21.6 MG CONT INF ×2 (02:15→07:03)
[2021-06-07] MEDS: Piperacil/Tazobactam 3.375 GM/50 ML ML IV ×3 (04:18→23:06)
[2021-06-07 05:01] LABS: Absolute Lymphocyte Count 0.93 X10^3/uL (0.83-4.51); Absolute Neutrophil Count 7.6 X10^3/uL (2.0-7.7); Basophil# 0.01 X10^3/uL; Basophil% 0.1 % (0-1); Hematocrit 40.9 % (40-54); Hemoglobin 13.5 g/dL (13.0-16.5); Lymphocyte # 0.93 X10^3/ul (0.83-4.51); Lymphocyte % 9.8 % (19-41); Mean Corpuscular Hgb 32.7 pg (27.0-32.0); Monocyte# 0.94 X10^3/uL; Monocyte% 9.9 % (0-10); NRBC Flagged by Analyzer 0 % (0-5); Neutrophil % 79.7 % (47-70); Platelet Count 113 K/mm3 (150-450); RBC Distribution Width CV 14.5 % (11.6-14.6); RBC Distribution Width SD 52.9 fl (35.1-43.9); Red Blood Count 4.13 M/mm3 (4.6-6.2); White Blood Count 9.5 K/mm3 (4.4-11.0)
[2021-06-07 05:16] LABS: ALB/GLOB Ratio 0.7 RATIO (0.9-2.4); AST(SGOT) 61 U/L (15-37); Alanine Aminotransfer ALT/SGPT 95 U/L (16-61); Albumin, Serum 2.4 g/dL (3.2-5.0); Alkaline Phosphatase 79 U/L (45-117); Anion Gap 6 (5-15); BUN 17 mg/dL (7-18); Chloride 94 mmol/L (98-107); Creatinine, Serum 0.81 mg/dL (0.70-1.30); EST Glomerular Filtration Rate 109 mL/min (>60); Est Glom Filt Rate - Afr Amer 132 mL/min (>60); Estimated Creatinine Clearance 125.08 ml/min; Globulin 3.5 g/dL (2.2-4.2); Glucose 188 mg/dL (74-106); Potassium 3.2 mmol/L (3.5-5.1); Protein, Total 5.9 g/dL (6.4-8.2); Sodium Level 137 mmol/L (136-145)
--- NOTE | 2021-06-07 07:07 | PCM.PN.INT ---
Assessment & Plan Assessment/Plan (1) Cardiopulmonary arrest: PLAN: RECOMMENDATIONS: 1. Continue patient on assist control mode mechanical ventilation. 2. Continue empiric antimicrobials as ordered. 3. Discontinue sedation. 4. Continue Keppra and seizure precautions. 5. Continue PPI therapy. 6. Obtain MRI brain and brain EEG. IMPRESSIONS: 1. Acute hypoxemic respiratory failure status post cardiac arrest The patient presented to the hospital after sustaining what was likely a primary respiratory arrest after he choked on food that he was eating. ACLS was initiated by responding EMS. However, there was a reasonable amount of downtime prior to return of spontaneous circulation. For now, the patient will be continued on invasive mechanical ventilatory support. FiO2 and PEEP will be weaned as tolerated. He is on appropriate antimicrobials over concerns for possible aspiration. 2. Encephalopathy Clinical concern for anoxic brain injury based upon presentation. EEG revealed a burst suppression pattern. The patient is currently demonstrating focal seizure-like activity, for which he was placed on Keppra and as needed Ativan. This regimen will be continued without change. The patient will be maintained on seizure precautions. Prognosis is overall quite poor. We will proceed with brain work-up today. 3. History of asthma/obstructive sleep apnea As needed bronchodilator therapy can be initiated. 4. Mild shock liver Secondary to tissue hypoperfusion in the setting of cardiac arrest. Continue to monitor clinically. 5. History of pulmonary hypertension/PE/atrial fibrillation/morbid obesity Complicates care, management, recovery and prognosis. Continue home medications for now as indicated. TIME: 34 minutes of critical care time, independent of procedures, was spent addressing the patient's acute hypoxemic respiratory failure status post cardiac arrest, encephalopathy, mild shock liver, review of all data and collaboration with the care team. Subjective Subjective The patient was seen and examined at the bedside this morning. Events from the last 24 hours have been reviewed. The patient continues to have low-grade fevers, but remains hemodynamically stable. No overnight issues were identified by the nursing staff. The patient remains on assist control mode mechanical ventilation with an FiO2 requirement of 50% and PEEP of 10. The patient remains in atrial fibrillation. Platelet count remains low at 113,000. Potassium is low at 3.2. Bicarbonate is elevated at 37. Objective Data Objective Data The patient's most recent lab work, culture data and imaging studies have all been personally reviewed. Blood and sputum cultures are pending. Vital Signs: Vital Signs Temp Pulse Resp BP Pulse Ox 98.9 F 74 16 120/71 97 06/07/21 06:00 06/07/21 06:55 06/07/21 06:55 06/07/21 06:00 06/07/21 06:55 Oxygen Flow Rate (L/min) 100 Oxygen Delivery Method Mechanical Ventilator Weight: 176.9 kg Body Mass Index (BMI) 52.4 Intake & Output: Intake and Output for Last 24 Hours 06/05/21 06/06/21 06/07/21 23:59 23:59 23:59 Intake Total 5033.53 / 5041.03 1822.92 / 1862.92 256.37 / 256.37 Output Total 4550 / 4550 2200 / 2200 400 / 400 Balance 483.53 / 491.03 -377.08 / -337.08 -143.63 / -143.63 Lab / Micro Data Attestation: I reviewed the patient's lab results. Result Diagrams: 06/07/21 04:40 06/07/21 04:40 Labs: Laboratory Results - last 24 hr 06/04/21 18:35: Diff Path Review Reviewed 06/06/21 15:30: Vancomycin Trough 1.1 L 06/07/21 04:40: WBC 9.5, RBC 4.13 L, Hgb 13.5, Hct 40.9, MCV 99.0 H, MCH 32.7 H, MCHC 33.0, RDW Std Deviation 52.9 H, RDW Coeff of Salazar 14.5, Plt Count 113 L, MPV 10.0, Immature Gran % (Auto) 0.500, Neut % (Auto) 79.7 H, Lymph % (Auto) 9.8 L, [place] % (Auto) 9.9, Eos % (Auto) 0.0, Baso % (Auto) 0.1, Absolute Neuts (auto) 7.6, Absolute Lymphs (auto) 0.93, Nucleated RBC % 0 06/07/21 04:40: Sodium 137, Potassium 3.2 L, Chloride 94 L, Carbon Dioxide 37.0 H, Anion Gap 6, BUN 17, Creatinine 0.81, Estim Creat Clear Calc 125.08, Est GFR (MDRD) Af Amer 132, Est GFR (MDRD) Non-Af 109, BUN/Creatinine Ratio 21.0 H, Glucose 188 H, Calcium 7.0 L, Total Bilirubin 1.80 H, AST 61 H, ALT 95 H, Alkaline Phosphatase 79, Total Protein 5.9 L, Albumin 2.4 L, Globulin 3.5, Albumin/Globulin Ratio 0.7 L Micro: Microbiology 06/04/21 21:44 Sputum, Tracheal Aspirate Gram Stain - Final 06/04/21 21:44 Sputum, Tracheal Aspirate Respiratory Culture - Preliminary Appears to be normal respiratory steven. Further studies to follow. 06/05/21 05:23 Gastric Fluid/Contents Gastric Occult Blood - Final Occult Blood Positive Rhythm Strip Rhythm Strip: A-fib Rate: 91 Physical Exam Const Constitutional Narrative: The patient is currently comatose on the vent. The patient no longer initiate spontaneous breaths on spontaneous mode of ventilation. General Appearance: intubated and patient mechanically ventilated Nutritional Appearance: morbidly obese HEENT normocephalic and head/scalp atraumatic Mouth: endotracheal tube in place and OG tube in place Eyes Pupil: dilated, fixed, sluggish and pinpoint Neck supple General: trachea midline Resp Auscultation: diminished lung sounds; Negative for rales, rhonchi or wheezes Cardio S1 normal heart sound and S2 normal heart sound Rhythm: abnormal rhythm GI normal to inspection, nondistended, normoactive bowel sounds Extremity General Extremity: edema Skin no rashes or lesions noted Neuro Neuro Narrative: The patient is comatose and nonresponsive to verbal and tactile stimulation. No gag or pupillary reflex is present. Charges/Coding Procedures Hospitalists Procedures: [id number] Critial Care 1st Hr
[2021-06-07] MEDS: Potassium Chloride 10mEq/100mL 10 MEQ/100 ML IV.SOLN. 100 MEQ IV BOLUS ×4 (07:31→11:20)
[2021-06-07] MEDS: Chlorhexidine 15 ML PO ×2 (07:33→22:12)
[2021-06-07] MEDS: predniSONE 10 MG Tablet 50 MG PO (07:33)
[2021-06-07] MEDS: CHLORHEXIDINE GLUC 2% CLOTH 1 EACH TOWELETTE TOPICAL (07:34)
--- NOTE | 2021-06-07 10:42 | NURSING ---
@ bedside talking with Dr Wheatley, mri ordered , shoulder measurements 71.12 cm catechist informed pt will not fit in machine, informed will proceed with eeg
--- NOTE | 2021-06-07 11:53 | CASEMGMT ---
SW participated in ICU rounds. SW spoke w/ in room to offer support, states does not feel like talking at present. SW explained is available should she want to talk or need anything. NEETU Bello
--- NOTE | 2021-06-07 15:05 | CHAPLAIN ---
Type of Pastoral Visit ___ Initial Visit _x__ Follow-up Visit ___ On-call Visit ___ General Patient Visit ___ Spiritual Assessment ___ Family Conference ___ Bereavement ___ Rapid Response ___ Code Blue ___ Other (describe below) Pastoral Care Referral From ___ Patient ___ Family ___ Nurse ___ Physician ___ Assistant Professor Of Anthropology ___ Medical Receptionist ___ Other (describe below) Sacrament/Intervention ___ Active listening ___ Anointing ___ Amish ___ Bereavement ___ Communion ___ Jenn exploration ___ ___ Life review ___ Prayer ___ Reconciliation ___ Sacrament of Sick _x__ Supportive presence ___ Wedding ___ Other (describe below) Pastoral Comments follow up to patient who remains unresponsive and on vent; is at bedside, draped over patient and quietly crying; upon entering room the spouse states he just moved his legs, he is moving; movement was not witnessed by this maintenance mechanic elevators but assurance was given to spouse that this statement would be reported to the RN; gave silent presence for a few moments and then went to inform RN of this statement; returning to the room the spouse states I really don't want to talk right now; honored her desire but did inform her that information of movement was passed along to RN
--- NOTE | 2021-06-07 15:53 | PN.HOSP_ITS ---
Subjective Subjective Patient seen and examined. He remains intubated and sedated. Family is now requesting another EEG and MRI of the brain before they can make a decision. He has otherwise remained hemodynamically stable. Objective Data Objective Data Vital Signs: Vital Signs Temp Pulse Resp BP Pulse Ox 97.5 F L 82 16 134/99 H 95 06/07/21 14:00 06/07/21 14:00 06/07/21 14:00 06/07/21 14:00 06/07/21 14:00 Oxygen Flow Rate (L/min) 100 Oxygen Delivery Method Mechanical Ventilator Weight: 389 lb 15.964 oz Body Mass Index (BMI) 52.4 Intake & Output: Intake and Output for Last 24 Hours 06/05/21 06/06/21 06/07/21 23:59 23:59 23:59 Intake Total 5033.53 / 5041.03 1822.92 / 1862.92 1055.14 / 1055.14 Output Total 4550 / 4550 2200 / 2200 4375 / 4375 Balance 483.53 / 491.03 -377.08 / -337.08 -3319.86 / -3319.86 Lab / Micro Data Result Diagrams: 06/07/21 04:40 06/07/21 04:40 Labs: Laboratory Results - last 24 hr 06/06/21 15:30: Vancomycin Trough 1.1 L 06/07/21 04:40: WBC 9.5, RBC 4.13 L, Hgb 13.5, Hct 40.9, MCV 99.0 H, MCH 32.7 H, MCHC 33.0, RDW Std Deviation 52.9 H, RDW Coeff of Salazar 14.5, Plt Count 113 L, MPV 10.0, Immature Gran % (Auto) 0.500, Neut % (Auto) 79.7 H, Lymph % (Auto) 9.8 L, [place] % (Auto) 9.9, Eos % (Auto) 0.0, Baso % (Auto) 0.1, Absolute Neuts (auto) 7.6, Absolute Lymphs (auto) 0.93, Nucleated RBC % 0 06/07/21 04:40: Sodium 137, Potassium 3.2 L, Chloride 94 L, Carbon Dioxide 37.0 H, Anion Gap 6, BUN 17, Creatinine 0.81, Estim Creat Clear Calc 125.08, Est GFR (MDRD) Af Amer 132, Est GFR (MDRD) Non-Af 109, BUN/Creatinine Ratio 21.0 H, Glucose 188 H, Calcium 7.0 L, Total Bilirubin 1.80 H, AST 61 H, ALT 95 H, Alkaline Phosphatase 79, Total Protein 5.9 L, Albumin 2.4 L, Globulin 3.5, Albumin/Globulin Ratio 0.7 L Micro: Microbiology 06/05/21 03:45 Blood Culture (Wb) - Left Hand Blood Culture - Preliminary No growth in 48 hours. 06/05/21 03:45 Blood Culture (Wb) - Left Hand Blood Culture - Preliminary No growth in 48 hours. 06/04/21 21:44 Sputum, Tracheal Aspirate Gram Stain - Final 06/04/21 21:44 Sputum, Tracheal Aspirate Respiratory Culture - Final 06/05/21 05:23 Gastric Fluid/Contents Gastric Occult Blood - Final Occult Blood Positive Rhythm Strip Rhythm Strip: A-fib Rate: 91 Physical Exam Const Constitutional Narrative: intubated, sedated, RASS score is -4 Exam Limitations: altered mental status Nutritional Appearance: morbidly obese HEENT normocephalic, head/scalp atraumatic and moist oral mucous membranes Eyes PERRL, EOMs intact bilaterally and conjunctivae normal Neck nuchal rigidity, no lymphadenopathy, no JVD and thyroid normal General: trachea midline Resp Resp Narrative: intubated, sedated. Auscultation: Negative for rales, rhonchi or wheezes Cardio S1 normal heart sound, S2 normal heart sound and no murmurs GI normal to inspection, nondistended, normoactive bowel sounds, soft to palpation, non-tender and non-distended GI Narrative: obese Extremity normal to inspection and no clubbing, cyanosis or edema Peripheral Pulses: Yes pulses 2+ throughout Skin no rashes or lesions noted General Skin Exam: no breakdown Neuro Neuro Narrative: intubated, sedated, RASS score is -4 Psych Psych Narrative: Patient is comatose and on the ventilator Assessment & Plan Assessment/Plan (1) Septic shock: (2) Cardiopulmonary arrest: (3) Asystole: (4) Respiratory failure: PLAN: #Acute hypoxic respiratory failure due to acute cardiopulmonary arrest * remains intubated and sedated. * critical care on board * titrate oxygen to maintain sats >90% * sedation discontinued today #Acute metabolic encephalopathy * on keppra and ativan prn due to seizure like activity * concerning for anoxic brain injury, in light of his respiratory arrest * EEG showed burst suppression pattern indicating a severe, diffuse encepha lopathy * seizure precautions * brain workup initiated today; to have EEG again today. Was to have brain MRI, but unable to fit in the machine. * #Sepsis due to probable aspiration pneumonia * On Zosyn and vancomycin. Could possibly be due to an aspiration pneumonia * Blood cultures pending * #TELMA and asthma: on breathing treatments with bronchodilators #Hypokalemia: Potassium is still 3.2 today. Replace and trend. #Super morbid obesity: complicates acute care and prognosis #A. fib: On Xarelto and Cardizem. DVT prophylaxis: on eliquis Code status: full code. Prognosis: remains poor. Brain workup in progress. family still undecided about goals of care. Charges/Coding Visit Charges Inpatient E&M: 96586 Subs Hosp L3
[2021-06-07] MEDS: 0.9% Saline Lock 10 ML Syringe IV (22:08)
[2021-06-07] MEDS: Pramipexole Di-HCl 0.5 MG Tablet PO (22:08)
[2021-06-08] VITALS (24 sets, daily range): BP systolic 95–147; BP diastolic 65–114; PULSE 16–103; RESP 10–17; TEMP 36.2–37.3; O2SAT 93–97
[2021-06-08 04:51] LABS: ALB/GLOB Ratio 0.6 RATIO (0.9-2.4); AST(SGOT) 37 U/L (15-37); Alanine Aminotransfer ALT/SGPT 79 U/L (16-61); Albumin, Serum 2.3 g/dL (3.2-5.0); Alkaline Phosphatase 76 U/L (45-117); Anion Gap 4 (5-15); BUN 18 mg/dL (7-18); BUN/Creat Ratio 20.9 RATIO (10-20); Calcium,Total 8.5 mg/dL (8.5-10.1); Chloride 118 mmol/L (98-107); Creatinine, Serum 0.86 mg/dL (0.70-1.30); EST Glomerular Filtration Rate 102 mL/min (>60); Est Glom Filt Rate - Afr Amer 123 mL/min (>60); Glucose 183 mg/dL (74-106); Potassium 3.2 mmol/L (3.5-5.1); Protein, Total 6.3 g/dL (6.4-8.2); Sodium Level 158 mmol/L (136-145)
[2021-06-08] MEDS: Piperacil/Tazobactam 3.375 GM/50 ML ML IV ×2 (06:21→14:34)
[2021-06-08] MEDS: CHLORHEXIDINE GLUC 2% CLOTH 1 EACH TOWELETTE TOPICAL (06:21)
--- NOTE | 2021-06-08 06:47 | PCM.PN.INT ---
Assessment & Plan Assessment/Plan (1) Cardiopulmonary arrest: PLAN: RECOMMENDATIONS: 1. Continue patient on assist control mode mechanical ventilation. 2. Continue empiric antimicrobials as ordered. 3. Continue Keppra and seizure precautions. 4. Continue PPI therapy. 5. Give DDAVP x1. IMPRESSIONS: 1. Acute hypoxemic respiratory failure status post cardiac arrest The patient presented to the hospital after sustaining what was likely a primary respiratory arrest after he choked on food that he was eating. ACLS was initiated by responding EMS. However, there was a reasonable amount of downtime prior to return of spontaneous circulation. For now, the patient will be continued on invasive mechanical ventilatory support. FiO2 and PEEP will be weaned as tolerated. He is on appropriate antimicrobials over concerns for possible aspiration. 2. Encephalopathy Clinical concern for anoxic brain injury based upon presentation. EEG findings were consistent with anoxic brain injury. The patient remains on Keppra and seizure precautions. The patient remains off of all sedation. Brain MRI is unable to be completed due to the patient's size. Although the patient's current clinical examination and EEG results all indicate a poor prognosis, I cannot definitively declare the patient brain . 3. Hypernatremia Suspect this is related to central DI in the setting of hypoxic encephalopathy. Prognosis is quite poor. Give DDAVP x1. 4. History of asthma/obstructive sleep apnea As needed bronchodilator therapy can be initiated. 5. Mild shock liver Secondary to tissue hypoperfusion in the setting of cardiac arrest. Continue to monitor clinically. 6. History of pulmonary hypertension/PE/atrial fibrillation/morbid obesity Complicates care, management, recovery and prognosis. Continue home medications for now as indicated. TIME: 42 minutes of critical care time, independent of procedures, was spent addressing the patient's acute hypoxemic respiratory failure status post cardiac arrest, encephalopathy, mild shock liver, review of all data and collaboration with the care team. Subjective Subjective The patient was seen and examined at the bedside this morning. Events from the last 24 hours have been reviewed. The patient remains neurologically unchanged from previous. The patient remains on assist control mode of mechanical ventilation with an FiO2 requirement of 60%. Sodium has increased this morning to 158 with a potassium of 3.2, bicarbonate of 36 and normal creatinine. Total bili has also increased to 2.0. Urine output has increased significantly. EEG results from yesterday were consistent with anoxic brain injury. Objective Data Objective Data The patient's most recent lab work, culture data and imaging studies have all been personally reviewed. Blood and sputum cultures have demonstrated no growth to date. Vital Signs: Vital Signs Temp Pulse Resp BP Pulse Ox 97.2 F L 89 16 140/97 H 95 06/08/21 05:00 06/08/21 05:00 06/08/21 05:00 06/08/21 05:00 06/08/21 05:00 Oxygen Flow Rate (L/min) 100 Oxygen Delivery Method Mechanical Ventilator Weight: 164.4 kg Body Mass Index (BMI) 52.4 Intake & Output: Intake and Output for Last 24 Hours 06/06/21 06/07/21 06/08/21 23:59 23:59 23:59 Intake Total 1822.92 / 1862.92 1360.14 / 1360.14 50 / 50 Output Total 2200 / 2200 7975 / 50083 5750 / 5750 Balance -377.08 / -337.08 -6614.86 / -9314.86 -5700 / -5700 Lab / Micro Data Attestation: I reviewed the patient's lab results. Result Diagrams: 06/07/21 04:40 06/08/21 04:05 Labs: Laboratory Results - last 24 hr 06/08/21 04:05: Sodium 158 H, Potassium 3.2 L, Chloride 118 H, Carbon Dioxide 36.0 H, Anion Gap 4 L, BUN 18, Creatinine 0.86, Estim Creat Clear Calc 117.80, Est GFR (MDRD) Af Amer 123, Est GFR (MDRD) Non-Af 102, BUN/Creatinine Ratio 20.9 H, Glucose 183 H, Calcium 8.5, Total Bilirubin 2.00 H, AST 37, ALT 79 H, Alkaline Phosphatase 76, Total Protein 6.3 L, Albumin 2.3 L, Globulin 4.0, Albumin/Globulin Ratio 0.6 L Micro: Microbiology 06/05/21 03:45 Blood Culture (Wb) - Left Hand Blood Culture - Preliminary No growth in 48 hours. 06/05/21 03:45 Blood Culture (Wb) - Left Hand Blood Culture - Preliminary No growth in 48 hours. 06/04/21 21:44 Sputum, Tracheal Aspirate Gram Stain - Final 06/04/21 21:44 Sputum, Tracheal Aspirate Respiratory Culture - Final 06/05/21 05:23 Gastric Fluid/Contents Gastric Occult Blood - Final Occult Blood Positive Rhythm Strip Rhythm Strip: A-fib Rate: 91 Physical Exam Const Constitutional Narrative: The patient is currently comatose on the vent. The patient does trigger the vent when placed on CPAP mode of ventilation. General Appearance: intubated and patient mechanically ventilated Nutritional Appearance: morbidly obese HEENT normocephalic and head/scalp atraumatic Mouth: endotracheal tube in place and OG tube in place Eyes Pupil: dilated, fixed, sluggish and pinpoint Neck supple General: trachea midline Resp Auscultation: diminished lung sounds; Negative for rales, rhonchi or wheezes Cardio S1 normal heart sound and S2 normal heart sound Rhythm: abnormal rhythm GI normal to inspection, nondistended, normoactive bowel sounds Extremity General Extremity: edema Skin no rashes or lesions noted Neuro Neuro Narrative: The patient is comatose and nonresponsive to verbal and tactile stimulation. No gag or pupillary reflex is present. Charges/Coding Procedures Hospitalists Procedures: 44007 Critial Care 1st Hr
[2021-06-08] MEDS: 0.9% Saline Lock 10 ML Syringe IV (08:29)
[2021-06-08 10:16] LABS: Base Excess 19 mmol/L (-2 to +2); Bicarbonate 40.9 mmol/L (22-26); Blood Gas Specimen Type ART; FI02 40; Mode AC; O2 Delivery Device ET Tube; PEEP 6; PO2 69 mmHG (75-100); RR 16; SITE L Radial; SO2 95 % (95-99); Total Carbon Dioxide 42 mmol/L; Vt 550; pCO2 47.4 mmHg (35-45); pH 7.55 (7.35-7.45)
[2021-06-08] MEDS: predniSONE 10 MG Tablet 50 MG PO (10:47)
[2021-06-08] MEDS: Chlorhexidine 15 ML PO (10:47)
--- NOTE | 2021-06-08 16:41 | PN.HOSP_ITS ---
Subjective Subjective Patient seen and examined. He remains intubated and sedated. Neurologic status remains unchanged. Sodium has trended up this morning to 158, and bilirubin has trended up to 2. EEG done yesterday was consistent with evidence of anoxic brain injury. Objective Data Objective Data Vital Signs: Vital Signs Temp Pulse Resp BP Pulse Ox 99.2 F H 94 10 L 95/65 96 06/08/21 14:00 06/08/21 16:00 06/08/21 15:28 06/08/21 15:00 06/08/21 15:28 Oxygen Flow Rate (L/min) 60 Oxygen Delivery Method Mechanical Ventilator Weight: 362 lb 7.039 oz Body Mass Index (BMI) 52.4 Intake & Output: Intake and Output for Last 24 Hours 06/06/21 06/07/21 06/08/21 23:59 23:59 23:59 Intake Total 1822.92 / 1862.92 1360.14 / 1360.14 315 / 315 Output Total 2200 / 2200 7975 / 59786 7250 / 7250 Balance -377.08 / -337.08 -6614.86 / -9314.86 -6935 / -6935 Lab / Micro Data Result Diagrams: 06/07/21 04:40 06/08/21 04:05 Labs: Laboratory Results - last 24 hr 06/08/21 04:05: Sodium 158 H, Potassium 3.2 L, Chloride 118 H, Carbon Dioxide 36.0 H, Anion Gap 4 L, BUN 18, Creatinine 0.86, Estim Creat Clear Calc 117.80, Est GFR (MDRD) Af Amer 123, Est GFR (MDRD) Non-Af 102, BUN/Creatinine Ratio 20.9 H, Glucose 183 H, Calcium 8.5, Total Bilirubin 2.00 H, AST 37, ALT 79 H, Alkaline Phosphatase 76, Total Protein 6.3 L, Albumin 2.3 L, Globulin 4.0, Albumin/Globulin Ratio 0.6 L Micro: Microbiology 06/05/21 03:45 Blood Culture (Wb) - Left Hand Blood Culture - Preliminary No growth in 48 hours. 06/05/21 03:45 Blood Culture (Wb) - Left Hand Blood Culture - Preliminary No growth in 48 hours. 06/04/21 21:44 Sputum, Tracheal Aspirate Gram Stain - Final 06/04/21 21:44 Sputum, Tracheal Aspirate Respiratory Culture - Final 06/05/21 05:23 Gastric Fluid/Contents Gastric Occult Blood - Final Occult Blood Positive ABG Data ABG results: ABG 06/08/21 10:08 Specimen Type ART Sample Site L Radial pH 7.55 H Bicarbonate Actual 40.9 H Total CO2 42 Base Excess 19 H O2 Saturation 95 O2 % 40 ABG pCO2 47.4 H ABG pO2 69 L Respiration Rate 16 O2 Delivery Device ET Tube Vent Mode AC Tidal Volume 550 POC PEEP 6 Rhythm Strip Rhythm Strip: A-fib Rate: 91 Physical Exam Const Constitutional Narrative: intubated, sedated, RASS score is -4 Orientation / Consciousness: awake, oriented to person, oriented to place and oriented to time Exam Limitations: altered mental status Nutritional Appearance: morbidly obese HEENT normocephalic, head/scalp atraumatic and moist oral mucous membranes Head and Scalp: normocephalic Eyes conjunctivae normal Neck nuchal rigidity, no lymphadenopathy, no JVD and thyroid normal General: trachea midline Resp Resp Narrative: intubated, sedated. Cardio S1 normal heart sound, S2 normal heart sound, no murmurs and no gallops GI normal to inspection, nondistended, normoactive bowel sounds, soft to palpation, non-tender and non-distended GI Narrative: obese Extremity normal to inspection and no clubbing, cyanosis or edema Peripheral Pulses: Yes pulses 2+ throughout Skin no rashes or lesions noted General Skin Exam: no breakdown Neuro Neuro Narrative: intubated, sedated, RASS score is -4 Psych thought process normal Psych Narrative: Patient is comatose and on the ventilator Assessment & Plan Assessment/Plan (1) Septic shock: (2) Cardiopulmonary arrest: (3) Asystole: (4) Respiratory failure: PLAN: #Acute hypoxic respiratory failure due to acute cardiopulmonary arrest * remains intubated and sedated. * critical care on board * titrate oxygen to maintain sats >90% * off sedation #Acute metabolic encephalopathy * on keppra and ativan prn due to seizure like activity * concerning for anoxic brain injury, in light of his respiratory arrest * EEG showed burst suppression pattern indicating a severe, diffuse encephalopathy * seizure precautions * now off sedation. Neurology reviewed him today, and he has severe anoxic encephalopathy. Unable to declare brain due to metabolic derangements, and also doesnt meet criteria due to posturing and nystagmus * Has minimal brainstem or cortical function and is worsening. He was unable to obtain the MRI scanner to could not have a brain MRI * Prognosis very poor. * #Sepsis due to probable aspiration pneumonia * On Zosyn and vancomycin. Could possibly be due to an aspiration pneumonia * Blood cultures pending * #Hypernatremia: * sodium is 158 today. * thought to be due to DI in setting of hypoxic encephalopathy. * patient given DDAVP today per critical care. #TELMA and asthma: on breathing treatments with bronchodilators #Hypokalemia: Potassium is still 3.2 today. Replace and trend. #Super morbid obesity: complicates acute care and prognosis #A. fib: On Xarelto and Cardizem. DVT prophylaxis: on eliquis Code status: code status changed to DNRCC today. family wishes to withdraw care. [employer] on board as patient is an organ donor. Prognosis:very poor. Charges/Coding Visit Charges Inpatient E&M: 25395 Subs Hosp L3
--- NOTE | 2021-06-08 17:21 | EXP.PCM_ITS ---
Preliminary Cause of Preliminary Cause of Preliminary Cause of : asystole due to acute cardiopulmonary arrest due to choking. Date of Admission: 06/04/21 Principle Diagnosis Problem List: Active and Suspected Problems (Updated 06/05/21 @ 02:[address] Alex Jalloh MD) Septic shock (Acute) Cardiopulmonary arrest (Acute) Asystole (Acute) Endotracheally intubated (Acute) Respiratory failure (Acute) History of diabetes mellitus (Acute) Hypoxic brain injury (Acute) Hospital Course Patient is a 46-year-old male with a past medical history as outlined who was admitted through the ED on 06/04/2021 after he became unresponsive while choking on his dinner. Patient was apparently eating hamburger and fries. When EMS arrived, he was unresponsive and pulseless as well as cyanotic. ACLS was initiated and patient was brought into the ED. He had an elevated white count of 13,000 and lactic acid was elevated to 11. AST and ALT were also elevated. In the ED, CT of the brain was negative and CT of the chest was also negative for any evidence of PE. CT chest showed multilobar airspace consolidations. Patient was emergently intubated and admitted to the ICU to be managed for acute cardiopulmonary arrest due to choking as well as aspiration pneumonia. He was started on empiric antimicrobials. There were concerns about seizure activity so he was started on IV Keppra as well as Ativan. Critical care was consulted. EEG done showed burst suppression pattern indicating a severe diffuse encephalopathy. Neurology was consulted and and deemed prognosis is very poor due to anoxic brain injury from acute cardiopulmonary arrest. MRI of the brain could not be done because patient could not fit into the MRI machine. Hospital course was complicated by hyperbilirubinemia and hypernatremia. He was started on DDAVP as hyponatremia was thought to be due to diabetes insipidus as a consequence of severe hypoxic encephalopathy. Hospital course was also complicated by hypokalemia which was replaced. Family eventually determined to terminally extubate patient and this was done on 06/08/2021. Patient was dec lared at 1749 on 06/08/2021. Cause of is asystole due to acute cardiopulmonary arrest and aspiration pneumonia as a result of a choking episode. Visit Charges Inpatient E&M: 46773 Disch Hosp
[2021-06-08] MEDS: Morphine 4 MG/ML Syringe IV (17:27)
[2021-06-08] MEDS: LORazepam 2 MG/ML Syringe IV (17:28)
== END 2021-06-08 17:49 | DRG 296 ==
LOC: ED 19:04 → ICU 20:06
PROVIDERS: Emergency Medicine; Internal Medicine Critical Care Medicine; Admitting Provider Hospitalist; Emergency Provider Emergency Medicine; PCP Family Medicine; Visit Provider Student in an Organized Health Care Education/Training Program
DX: I46.9 Cardiac arrest, cause unspecified (principal); J69.0 Pneumonitis due to inhalation of food and vomit; J96.01 Acute respiratory failure with hypoxia; K72.00 Acute and subacute hepatic failure without coma; G93.41 Metabolic encephalopathy; Z68.43 Body mass index [BMI] 50.0-59.9, adult; N17.9 Acute kidney failure, unspecified; G93.1 Anoxic brain damage, not elsewhere classified; E87.0 Hyperosmolality and hypernatremia; I27.20 Pulmonary hypertension, unspecified; I48.20 Chronic atrial fibrillation, unspecified; I50.9 Heart failure, unspecified; E66.01 Morbid (severe) obesity due to excess calories; E11.9 Type 2 diabetes mellitus without complications; R56.9 Unspecified convulsions; T17.928A Food in respiratory tract, part unspecified causing other injury, initial encounter; E87.6 Hypokalemia; G47.33 Obstructive sleep apnea (adult) (pediatric); J45.909 Unspecified asthma, uncomplicated; G25.3 Myoclonus; Z79.01 Long term (current) use of anticoagulants; Z86.711 Personal history of pulmonary embolism; F32.A Depression, unspecified; G89.29 Other chronic pain; Z66 Do not resuscitate; Z82.49 Family history of ischemic heart disease and other diseases of the circulatory system; Z88.5 Allergy status to narcotic agent; Z52.9 Donor of unspecified organ or tissue
CPT/HCPCS: 31500; 31720; 36569; 36600; 51702; 70450; 71045; 71275; 80048; 80053; 80076; 80202; 81001; 82271; 82550; 82803; 83605; 84478; 84484; 85025; 85610; 85730; 87040; 87070; 87205; 93005; 94002; 94003; 95819; 99251; 99285; J7030; J7040; Q9967; 95824; A4216; G0463; J0295; J2597; J3010